=== PATIENT | male | born 1950 | race Caucasian/White ===

== ENCOUNTER 2025-04-23 14:58 | Outpatient (AMB) | payer OTHER, SELFPAY ==
--- OUTSIDE RECORDS SUMMARY | 2023-10-27 06:10 | XMS_ITS ---
Author Organization [facility] Address [address] [address] Care Team Providers Care Drywaller Name Role Phone Jose Ibrahim Unavailable [phone] REASON FOR VISIT REF FROM DR OTERO, FOR TESSA Vital Signs Temperature 97.7 degrees Fahrenheit 10/27/19 24 Blood pressure systolic 140 mm Hg 10/27/19 24 Blood pressure diastolic 75 mm Hg 024 Heart Rate 100 /min 10/27/2023 Respiratory Rate 20 /min 10/27/2023 Height 65 in 10/27/2023 Weight 146 lbs 10/27/2023 BMI 24.29 kg/m2 10/27/2023 Oximetry 98 % 10/27/2023 Height-cm 165.10 cm 10/27/2023 Weight-kg 66.22 kg 10/27/2023 Encounters Encounter Location Date Provider Diagnosis [facility] [address] [address] 10/27/2023 Jose Ibrahim Plan Of Treatment No Information Progress Notes * MARYFIORELLA STEIN SDOB:[birth year] (74 yo M)Acc No.[id number]:10/27/2023 Progress Notes Patient: FIORELLA FARFAN Provider: Mariaelena Ibrahim MD :1950 A ge:72 Y S ex:Male Date:10/27/2023 Phone: Address:[address] [place] [address] [id number] Subjective: * Chief Complaints: * R EF FROM DR OTERO FOR TESSA Objective: * Vitals: B P: 140/75 mm Hg, HR: 100 /min, RR: 20 /min, Temp: 97.7 F, Oxygen sat %: 98 %, Wt: 146 lbs, Wt-k.22 kg, Ht: 65 in, Ht-cm: 165.10 cm, BMI: 24.29 Index. * Electronic signature of Jose Ibrahim MD on 04/23/2025 at 06:26 PM EDT Sign off status: Pending * Provider: Mariaelena Ibrahim MD Date: 0 10/27/2023 Generated for Hector venegas/Arcelia/Simaitting on: 0 04/23/2025 06:26 PM EDT
--- OUTSIDE RECORDS SUMMARY | 2023-10-30 05:00 | XMS_ITS ---
Author Organization [facility] Address [address] [facility] [address] [place] [address] Care Team Providers Care Sales Route Driver Name Role Phone Migration, Provider Unavailable Unavailable REASON FOR VISIT EMR-Agapito Encounters Encounter Location Date Provider Diagnosis [facility] [address] [address] 10/30/2023 Provider Migration Obstructive sleep apnea (adult) (pediatric) G47.33 Assessments Encounter Date Diagnosis (ICD Code) Assessment Notes Treatment Notes Treatment Clinical Notes Section Notes 10/30/2023 Obstructive sleep apnea (adult) (pediatric) (ICD-10 - G47.33) Plan Of Treatment No Information Progress Notes * CHAUFIORELLA SDOB:[birth year] (74 yo M)Acc No.[id number]:10/30/2023 Patient: FIORELLA FARFAN Provider: Servando Morris :1950 A ge:72 Y S ex:Male Date:10/30/2023 Phone: Address:[address] [place], [place] [phone] Subjective: * Chief Complaints: * E MR-Agapito Assessment: * Assessment: 1. O bstructive sleep apnea (adult) (pediatric) - G47.33 Billing Information: * Visit Code: 45838 Office Visit, New Pt., Level 4. * Electronic signature of Prov ider Migration on 04/23/2025 at 06:26 PM EDT Sign off status: Pending * Provider: Servando weeks Migration Date: 10/30/2023 Generated for Hector venegas/Arcelia/eTconniesmitting on: 0 04/23/2025 06:26 PM EDT
--- OUTSIDE RECORDS SUMMARY | 2024-07-12 12:34 | XMS_ITS ---
Author Organization Chace Otero MD Address [address] [place] [address] Care Team Providers Care Director Safety Council Name Role Phone CHACE OTERO Primary Care Provider Encounters Encounter Location Date Provider Diagnosis [facility] Oter[facility] [address] [place], [place] [phone] 07/12/2024 CHACE OTERO PLAN OF TREATMENT No Information
--- OUTSIDE RECORDS SUMMARY | 2024-08-30 05:00 | XMS_ITS ---
Author Organization [facility] Address [address] [facility] [address] [place] [address] Care Team Providers Care Radiotelegraph Operator Servicer Name Role Phone Migration, Provider Unavailable Unavailable REASON FOR VISIT EMR-Agapito Encounters Encounter Location Date Provider Diagnosis [facility] [address] [facility] [address] [place] [address] 08/30/2024 Provider Migration Plan Of Treatment No Information Progress Notes * FIORELLA RITCHIE SDOB:[birth year] (74 yo M)Acc No.[id number]:08/30/2024 Patient: Ash ANTONUlisesFIORELLA :1950 A ge:73 Y S ex:Male Phone: Address:[address] [place] [address], [address] Subjective: * Chief Complaints: * E MR-Agapito * * Date:
--- OUTSIDE RECORDS SUMMARY | 2024-08-31 05:00 | XMS_ITS ---
Author Organization [facility] Address [address] [facility] [address] [place] [address] Care Team Providers Care Precision Lens Generator Name Role Phone Migration, Provider Unavailable Unavailable REASON FOR VISIT EMR-Agapito Encounters Encounter Location Date Provider Diagnosis [facility] [address] [facility] [address] [place] [address] 08/31/2024 Provider Migration Plan Of Treatment No Information Progress Notes * FIORELLA RITCHIE SDOB:[birth year] (74 yo M)Acc No.[id number]:08/31/2024 Patient: Ash ANTONUlisesFIORELLA :1950 A ge:73 Y S ex:Male Phone: Address:[address] [place] [address], [address] Subjective: * Chief Complaints: * E MR-Agapito * * Date:
--- OUTSIDE RECORDS SUMMARY | 2024-09-11 09:45 | XMS_ITS ---
Author Organization Chace Otero MD Address [address] [place] [address] Care Team Providers Care Clerical Secretary Name Role Phone CHAEC OTERO Primary Care Provider ALLERGIES No Known [...] bilateral (H25.13) Active confirmed Nuclear senile cataract ([id number]) VITAL SIGNS Heart Rate 83 /min 09/11/2024 Blood pressure systolic 115 mm Hg 09/11/19 25 Blood pressure diastolic 60 mm Hg 025 Weight 152 lbs 09/11/2024 BMI 25.29 kg/m2 09/11/2024 Height 65 in 09/11/2024 Oximetry 95 % 09/11/2024 Encounters Encounter Location Date Provider Diagnosis Chace Otero MD [facility] [address] [place], [place] [id number] 09/11/2024 CHACE OTERO Hyperlipidemia, unspecified E78.5 ; [...] (ICD-10 - H25.13) REFER TO OPTHALMOLOGIST --AT [facility] PLAN OF TREATMENT Treatment Notes Assessment Notes Hyperlipidemia, unspecified Nutrition: l ow cholesterol/TG diet Parkinson's disease with dys kinesia, with fluctuations Continue current therapy Dementia in other diseases c lassified elsewhere, moderate, without behavioral disturbance, psychotic disturbance, mood disturbance, and anxiety Continue current therapy Gastro-esophageal reflux dis ease without esophagitis Continue current therapy Age-related nuclear cataract, bilateral REFER TO OPTHALMOLOGIST--AT [facility], Future Test Test Name Order Date LIPID PANEL 09/11/2024 COMPREHENSIVE METABOLIC PANEL 09/11/2024 Next Appt Details Follow Up: 2 Months, Reason: Progress Notes * Examination Category Sub-Category Detail Notes Category Not es General Examination GENERAL APPEARANCE: in no ac joshua distress, well developed, well nourished HEART: no murmurs, regular rate and rhythm, S1, S2 normal LUNGS: clear to auscultatio n bilaterally ABDOMEN: normal, bowel sounds present, soft, nontender, nondistended NEUROLOGIC: alert and oriented unsteady gait EXTREMITIES: no clubbing, cyanosi s, or edema PERIPHERAL PULSES: 2+ dorsalis pedis
--- OUTSIDE RECORDS SUMMARY | 2024-09-11 10:00 | XMS_ITS ---
Author Organization Chace Otero MD Address [address] [place] [address] Care Team Providers Care Prep Room Supervisor Name Role Phone CHACE OTERO Primary Care [...] Five times a day Active VITAL SIGNS Heart Rate 83 /min 09/11/2024 Blood pressure systolic 115 mm Hg 09/11/19 25 Blood pressure diastolic 60 mm Hg 025 Weight 152 lbs 09/11/2024 BMI 25.29 kg/m2 09/11/2024 Height 65 in 09/11/2024 Oximetry 95 % 09/11/2024 Encounters Encounter Location Date Provider Diagnosis Chace Otero MD [facility] [address] [place], [place] [phone] 09/11/2024 CHACE OTERO Encounter for genera l [...] Patient Care Team Health Risk Assessment In [facility], would you say your health is: [...]
--- OUTSIDE RECORDS SUMMARY | 2024-11-04 10:30 | XMS_ITS ---
Author Organization Chace Reed MD Address [address] [place] [address] Care Team Providers Care Slope Tender Name Role Phone CHACE REED Primary Care Provider ALLERGIES No Known Allergies REASON FOR VISIT PATIENT HERE TODAY FOR 2 MONTH F/U, LAB REVIEW, RESULTS IN CHART, FYI-THIS IS HIS LAST VISIT HERE HE IS MOVING TO [place] IN ABOUT 2 WEEKS, PATIENT STATES PAIN [...] enjoys photography a nd reading VITAL SIGNS Heart Rate 78 /min 11/04/2024 Blood pressure systolic 130 mm Hg 11/05/19 Blood pressure diastolic 80 mm Hg 025 Weight 158 lbs 11/04/2024 BMI 26.29 kg/m2 11/04/2024 Height 65 in 11/04/2024 Oximetry 97 % 11/04/2024 Encounters Encounter Location Date Provider Diagnosis Chace Reed MD [facility] [address] [place], [place] [phone] 11/04/2024 CHACE REED Hyperlipidemia, unspecified E78.5 ; Unsteadiness on feet [...] Next Appt Details Follow Up: LEAVING TO [facility], Reason: Progress Notes * Examination Category Sub-Category Detail Notes Category Not es General Examination GENERAL APPEARANCE: in no ac [place] distress, well developed, well nourished NECK/THYROID: neck supple, full ra nge of motion, no cervical lymphadenopathy HEART: no murmurs, regular rate and rhythm, S1, S2 normal LUNGS: clear to auscultatio n bilaterally ABDOMEN: normal, bowel sounds present, soft, nontender, nondistended NEUROLOGIC: alert and oriented, gait unsteady EXTREMITIES: no clubbing, cyanosi s, or edema
--- OUTSIDE RECORDS SUMMARY | 2024-11-26 09:02 | XMS_ITS | Continuity of Care Document ---
Author Organization [facility] Address [address] [facility] [address] [place] [address] Care Team Providers Care Referral Rn Name Role Phone Ben Franklin ODMoshe Unavailable Unavailable Allergies, Adverse Reactions, Alerts Substance Reaction Status Criticality No Known Allergies Active No Inform ation Medications Medication Instructions Dosage Effective Dates (start - stop) Status Comments gatifloxacin 0.5 % eye drops instill 1 drop 2 times every day into operative eye for 7 days post operative - Active ONLY Acceptable substitutions include Zymaxid, Moxeza, Besivance, Moxifloxacin and Vigamox with same instructions. prednisolone acetate 1 % eye drops,suspension instill 1 drop 2 times every day into operative eye for 4 weeks (Pharmacist see Rx comment box for acceptable substitutions) - Active ONLY Acceptable substitutions include Durezol and Pred Forte with same instructions.Patie nt having procedure OU adjust amount as needed Nevanac 0.1 % eye drops,suspension instill 1 drop into operative eye twice daily for 4 weeks(pharmacist see Rx comment box for ONLY substitutions) - Active ONLY Acceptable substitutions are Ilevro, Prolensa, Acular LS 0.4%, Ketorolac 0.4%, Bromsite 0.075% JOSE ANGEL with same instruction. Patient will be having surgery OU. Please dispense 6 mL Rytary 48.75 mg-195 mg capsule,extended release take 1 capsule by oral route 3 times every day 1.00 capsule - Active Vitamin D3 125 mcg (5,000 unit) tablet - Active donepezil 5 mg tablet take 1 tablet by oral route every day in the evening 5 MG - Active sertraline 50 mg tablet take 1 tablet by oral route every day 50 MG - Active Primatene 12.5 mg tablet - Active Procedures Procedure Date Postop F/u Visit [employer] REFRACTION Visual Test Same Day PostOp Visit CATARACT SURG W/IOL, 1 STAGE CATARACT SURG W/IOL, 1 STAGE IOL Master Anes- Eye; Lens Surg Postop F/u Visit [employer] 5 No Charge REFRACTION Surgery Pre-Payment Same Day PostOp Visit CATARACT SURG W/IOL, 1 STAGE Anes- Eye; Lens Surg CATARACT SURG W/IOL, 1 STAGE Surgery Pre-Payment H&P for surgery Offic/outpt E&m New Mod-hi 45 5 No Charge REFRACTION ARGOS No charge Macula OCT Advance Directives Directive Yes / No Effective Date File Name No Information Encounters Encounter Description Practice Location Reason(s) For Visit Diagnoses Date Provider Providers Copied on Encounter [facility], [address] [place] [address], [id number], [facility] [place] No Information 5 Ben Franklin OD Moshe. [address] [facility] [address], [place], [place], [id number] , [place]. tel:[phone] [facility], [address] [place] [address] [address], [id number] [place] [facility] post op (chief complaint) Presence of intraocular lensPresbyopiaVit reous degeneration, bilateral Nov- 5 Ben Franklin OD Moshe. [address] [facility] [address], [place], [place], [id number] , [place]. tel:[phone] Referring Provider: Christofer Ospina OD R, [address] [place], [address]. tel:[phone] [facility], [address] [place] [address] [address], [place], [address] [place] [address], [facility], [place] Presence of intraocular lens Oct- 5 McDonel OD Rolando. [address] [facility], [place], [address] [place] [address] , . tel:[phone] [facility], [address] [place] [address] 230, [place], [address] [place] [address], tel:[phone] [facility] Age-related nuclear cataract, left eye 5 [facility] [place] [facility]. [address] [facility], [facility] 230, [place], [address] [place] [address] , . tel:[phone] Referring Provider: Poonam Lyles, [address] [place] [address] [address], [place], [address] . tel:[phone] [facility], [address] [place] [address] [address], [place], [address] [place] [address], [facility] Age-related nuclear cataract, left eye 5 Loida Levin. [address] [place] [address] [address], [place], [address] [place] [address] , . tel:[phone] Referring Provider: Poonam Lyles, [address] [place] [address] [address], [place], [address] . tel:[phone] [facility], [address] [place] [address] 230, [place], [address] [place] [address], [facility], [place] glare (chief complaint) post op (chief complaint) Age-related nuclear cataract of left eyeDry eye syndrome of bilateral lacrimal glandsPresence of intraocular lensPresbyopia 5 McDonel OD Rolando. [facility], [place], [place], [address] [place] [address] , . tel:[phone] Referring Provider: Christofer Ospina OD R, [address] [place], [address]. tel:[phone] [facility], [address], [place], [address] [place] [address], tel:[phone] [facility] No Information Oct- 5 [facility]. [address], [place], [address] [place] [address] , . tel:[phone] Referring Provider: Christofer Norton, [address] [place], [address]. tel:[phone] [facility], [address], [place], [address] [place] [address], [facility], [place] Presence of intraocular lens 5 Tyrell Marshall. [address], [place], [place], [id number] , . tel:[phone] [facility], [address] [facility] [facility] [address], [place], [address] [place] [address], [facility] Age-related nuclear cataract, right eye Oct- 5 Loida Levin. [address], [place], [address] [place] [address] , . tel:[phone] Referring Provider: Poonam Lyles, [address], [place], [address] . tel:[phone] [facility] [place] [facility], [address], [place], [address] [place] [address], tel:[phone] [facility] Age-related nuclear cataract, right eye 5 [facility]. [address], [place], [address] [place] [address] , . tel:[phone] Referring Provider: Poonam Lyles, [address], [place], [address] . tel:[phone] [facility], [address] [address], [place], [address] [place] [place] [address] tel:[phone] [facility] No Information Oct-1 0- 5 [facility]. [address] [place] [address], [address], [address] [place] [address]. tel:[phone] Referring Provider: Christofer Norton, [address] [place] [address], [address]. tel:[phone] [facility], [address] [place] [address], [place], [address] [place] [address] [facility] [place], [place] Encounter for other preprocedural examination Oct-0 5 White Teresa. [address] [place] [address], [address] [place] [address]. tel:[phone] Referring Provider: Christofer Norton, [address] [place] [address], [address]. tel:[phone] Offic/outpt E&m New Mod-hi 45 [facility], [address] [place] [address], [place], [address] [place] [address] glare (chief complaint) Age-related nuclear cataract, bilateralPresbyop iaDry eye syndrome of bilateral lacrimal glands Oct-0 - 5 Loida Levin. [address] [place] [address], [address] [place] [address]. tel:[phone] Referring Provider: Poonam Lyles, [address] [place] [address] [address], [place], [address] . tel:[phone] Family History Family Member Type Diagnosis Age At Onset Problem No family history of Macular degeneration Problem No family history of [place] a Payers Payer name Insurance type Covered constitution party [facility] [id number] Social History Type Description Quantity Date Captured Comments Sex Male Smoking Status No Information Chief Complaint And Reason For Visit No Information Reason For Referral Reason For Referral No Information History Of Present Illness Encounter Date Complaint History Of Prese nt Illness post op The 73 year old male presents for evaluation of post op following cataract surgery in both eyes. Patient states good compliance with post op drops and only has this evening left for the left eye. post op Patient presents for post op evaluation following surgery in the right eye. Patient denies discomfort and reports compliance with post op drops. glare Patient presents for evaluation of glare in the left eye worsening over the last 2-3 years. Patient reports difficulty reading captions on the television due to glare from the sunlight coming in through the window. glare Patient presents for evaluation of glare in both eyes over the last few years. Patient states he notices more trouble reading captions due to glare from lights or bright sunlight causing poor vision. Functional Status Date Functional Assessmen t No Information Instructions Date Instruction Additional Infor lavinia return in 1 year DFE Related to Vitreous degeneration, bilateral Impression/Plan Related to Presb yopia Impression/Plan Related to Prese nce of intraocular lens Impression/Plan Related to Vitre ous degeneration, bilateral cataract surgery Related to Age- related nuclear cataract of left eye Impression/Plan Related to Age-r elated nuclear cataract of left eye Impression/Plan Related to Prese nce of intraocular lens Impression/Plan Related to Dry e ye syndrome of bilateral lacrimal glands Impression/Plan Related to Presb yopia Impression/Plan Related to Age-r elated nuclear cataract, bilateral Impression/Plan Related to Dry e ye syndrome of bilateral lacrimal glands Impression/Plan Related to Presb yopia Assessments Type Assessment Date No Information Patient Care Teams Name Effective Dates (start - stop) Status Members No Information
--- OUTSIDE RECORDS SUMMARY | 2024-12-24 07:00 | XMS_ITS ---
Author Organization Chace Otero MD Address [address] [place] [address] Care Team Providers Care Studio Camera Operator Name Role Phone CHACE OTERO Primary Care Provider ALLERGIES No Known Allergies REASON FOR VISIT PATIENT HERE TODAY FOR YEARLY [facility] ANNUAL WELLNESS VISIT- ADIS, PATIENT [...] Chace Otero MD [place] [address] [place] [id number] 12/24/2024 CHACE OTERO PLAN OF TREATMENT No [...]
--- NOTE | 2025-04-23 15:31 | MHC.PC.OV ---
Vital Signs 04/23/25 15:48 Height 5 ft 7 in Weight 150 lb 6 oz BMI 23.5 BP 104/70 Blood Pressure Location Rt brachial Position Sitting Respiration 14 Pulse 79 Pulse Source Pulse Oximeter Temp 98.3 F Temp Source Temporal Artery Scan Pulse Oximetry (%) 96 Oxygen Delivery Method Room Air Intake Visit Reasons: RACING SECRETARY EST CARE Intake Note: Sundar presents in the office today to establish care. Allergies Seasonal Allergies Allergy (Verified 04/23/25 15:35) Runny Nose Medication List - Last Reconciled 04/24/25 by MARCIAL Schneider albuterol sulfate 90 mcg/actuation 2 inhalations inhalation .every 4 hours PRN 30 days carbidopa-levodopa 52.5-210 mg ER (Crexont) 4 caps PO BID inhalational spacing device (BreatheRite MDI Spacer) As directed levodopa (Inbrija) 84 mg inhalation BID PRN sertraline 50 mg PO DAILY Tobacco use date assessed: 04/23/25 Fall risk assessment: 1 Fall in past year Last assessed Fall Risk: 04/23/25 Dental Screening Dental Screen Date: 04/23/25 Did you have a dental visit in the last 12 months?: No Did you have a dental problem in the last 6 months where you did not have access to dental care?: No Was dental information given to patient?: Yes HPI HPI Comments History of Present Illness Details This is a 74-year-old male with a past medical history of asthma, Parkinson's disease and hyperlipidemia presenting to establish care. His medical records are unavailable at the time of the visit. He was diagnosed with Parkinson's disease in 2002. His neurologist is Dr. Patel at [facility]. He is currently treated with carbidopa levodopa, Inbrija, sertraline, and he has a DBS. notes worsening cognitive decline over the past year. He has an appointment in May with Neurology. They have an appointment with physical therapy at [facility] in May. They need a referral for speech and OT sent there. He recently received the [employer] kit with a which they plan to complete. His only concern today is intermittent left-sided chest pain. He says this has been going on for a long time. He had a chemical stress test done within the past year, and he reports no intervention was recommended. He does not recall having an echo. Patient says the pain is sharp. He feels it when he stands up and starts walking, but if he keeps walking it goes away. He denies shortness of breath, diaphoresis, dizziness, syncope. His father had coronary artery disease. The patient does not smoke. ROS: Constitutional: +chronic fatigue. Denies fevers, chills, night sweats or unexplained weight loss Eyes: No vision changes Respiratory: No shortness of breath, cough or sputum production. Cardiovascular: Denies palpitations and pedal edema. See HPI Gastrointestinal: No anorexia, nausea, vomiting or diarrhea. No abdominal pain or blood in stool Neurologic: Denies syncope, seizures. see HPI Musculoskeletal: Chronic neck pain Physical exam: Constitutional: Alert, in no distress. Eyes: Pupils are equal, round and reactive to light. Extraocular muscles intact. Neck: Supple, Full range of motion. No lymphadenopathy. Respiratory: Clear to auscultation. Cardiovascular: S1 S2 regular. No murmurs Genitourinary: No costovertebral angle tenderness. Neurologic: Hypokinetic dysarthria. Extremities: Warm and well perfused. No clubbing, cyanosis or edema. Intact peripheral pulses bilaterally. Psychiatric: Normal mood and affect [facility] Medical History (Updated 04/24/25 @ 09:29 by MARCIAL Schneider) Hypokinetic Parkinsonian dysphonia Pure hypercholesterolemia Pseudobulbar affect Chest pain Imbalance Incontinence Shingles Parkinson disease Asthma Surgical History (Updated 04/23/25 @ 15:56 by Jayne Sanchez MA) S/P deep brain stimulator placement History of cataract surgery History of cholecystectomy Family History (Updated 04/23/25 @ 15:48 by Jayne Sanchez MA) Father Asthma Hypertension Hyperlipemia Cardiovascular disease Brother Asthma Hypertension Hyperlipemia Diabetes Cardiovascular disease Clotting disorder Prostate cancer Substance abuse Sister Asthma Genetic thyroid disorder Mother Hypertension Diabetes Genetic thyroid disorder FHx: mental illness Schizophrenia Maternal Grandmother Hypertension Hyperlipemia Cardiovascular disease Maternal Grandfather Hypertension Hyperlipemia Cardiovascular disease Social History (Updated 04/23/25 @ 15:48 by Jayne Sanchez MA) Housing: House Alcohol intake: current Patient Tobacco Use Status: Never used Tobacco e-Cigarette/Vaping Use: Never Used Second Hand Smoke Exposure: No service: No Current occupational status: retired Current occupational exposures/hazards: No Cognitive needs: No Hearing needs: No Vision needs: No Questionnaire PHQ-9 Over the last 2 weeks, how often have you been bothered by any of the following problems? 1. Little interest or pleasure in doing things: not at all 2. Feeling down, depressed, or hopeless: not at all 3. Trouble falling or staying asleep, or sleeping too much: nearly every day 4. Feeling tired or having little energy: not at all 5. Poor appetite or overeating: not at all 6. Feeling bad about yourself - or that you are a failure or have let yourself or your family down: not at all 7. Trouble concentrating on things, such as reading the newspaper or watching television: not at all 8. Moving or speaking so slowly that other people could have noticed. Or the opposite - being so fidgety or restless that you have been moving around a lot more than usual: nearly every day 9. Thoughts that you would be better off or of hurting yourself in some way: not at all Total score: 6 Depression Screening Interpretation: Positive Depression Screening Done: Yes 43705 - PHQ-9 Billing: Yes Source: Developed by Drs. Moris Montero, Giulia Ohara, Kam Benitez and colleagues, with an educational derek from [employer]. Thrive Questionnaire Date Thrive assessed: 04/23/25 I am a: Patient What is your living situation today?: I have a steady place to live Within the past 12 months, did the food you bought not last and you didn't have the money to get more?: Sometimes True Within the past 12 months, did you worry whether your food would run out before you got money to buy more?: Never true Do you have trouble paying for medicines?: Yes Do you have trouble getting transportation to medical appointments?: No Do you have trouble paying your heating and electricity bill?: No Do you have trouble taking care of your child, family member or friend?: No Do you have trouble with day-to-day activities such as bathing, preparing meals, shopping, managing finances, etc.?: No Are you currently unemployed and looking for a job?: No Are you interested in more education?: Yes Please select the resources that you would like help with: Paying for medicine, Transportation, Utilities and None Currently or been in a relationship where the following occur: No concerns reported THRIVE Score: 1 AUDIT C Alcohol Use Questionnaire (AUDIT-C) 1. How often do you have a drink containing alcohol?: Never 3. How often do you have six or more drinks on one occasion?: Never Total Score: 0 DEVIKA-7 AMB Questionnaire DEVIKA-7 Date DEVIKA - 7 assessed: 04/23/25 Feeling nervous, anxious, or on edge: 0 = Not at all Not being able to stop or control worryin = Not at all Worrying too much about different things: 0 = Not at all Trouble relaxin = Not at all Being so restless that it is hard to sit still: 0 = Not at all Becoming easily annoyed or irritable: 0 = Not at all Feeling afraid as if something awful might happen: 0 = Not at all Total DEVIKA-7 score (0-4 normal; 5-9 mild; 10-14 moderate; 15-21 severe): 0 Source: Developed by Drs. Moris Montero, Giulia Ohara, Kam Benitez and colleagues, with an educational derek from [employer]. DEVIKA-7 Assessment Billing DEVIKA-7 Assessment Tool: DEVIKA-7 Assessment 25629 Physical exam (Primary Care) Vital Signs: Last Vital Signs Temp 98.3 F 04/23/25 15:48 Pulse 79 04/23/25 15:48 Resp 14 04/23/25 15:48 BP 104/70 04/23/25 15:48 Pulse Ox 96 04/23/25 15:48 Oxygen Delivery Method Room Air 04/23/25 15:48 BMI result Body Mass Index 23.5 Tobacco/Smoking Status: Tobacco use Status Tobacco use date assessed 04/23/25 04/23/25 15:56 Patient Tobacco Use Status Never used Tobacco 04/23/25 15:56 e-Cigarette/Vaping Use Never Used 04/23/25 15:56 PHQ-9: PHQ-9 Score PHQ-9: Total score 6 04/23/25 17:41 Depression Screening Interpretation: Positive Thrive Assessment: Date of Thrive Assessment Date Thrive assessed 04/23/25 04/23/25 15:34 Currently or been in a relationship where the following occur: No concerns reported Office Procedures EKG Details: Normal sinus rhythm, inferior infarct age undetermined, 77 beats per minute, reviewed by [id number], Complete Coding Level of Care Code New Pt Level 4 (76263) Complex EM visit Add On G2211 Diagnoses Mild intermittent asthma without complication J45.20 Asthma severity: mild Asthma persistence: intermittent Asthma complication type: uncomplicated Parkinson disease G20.A1 Dyskinesia presence: with dyskinesia Chest pain, unspecified type R07.9 Chest pain type: unspecified Pure hypercholesterolemia E78.00 Hypokinetic Parkinsonian dysphonia G20.A1; 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 (2) Parkinson disease: Code(s): G20.A1 - Parkinson's disease without dyskinesia, without mention of fluctuations Category: Medical Qualifiers: Dyskinesia presence: with dyskinesia Plan: Continue management per [facility] Neurology. Referred for speech and OT. (3) Chest pain: Code(s): R07.9 - Chest pain, unspecified Category: Medical Qualifiers: Chest pain type: unspecified Qualified Code(s): R07.9 - Chest pain, unspecified Plan: EKG with no acute ischemic changes today. Reports having chemical stress test within the past year. He is signing a release for records. I have ordered an echocardiogram. Does not sound cardiac since he states pain goes away after he continues to walk and move. (4) Pure hypercholesterolemia: Code(s): E78.00 - Pure hypercholesterolemia, unspecified Category: Medical Plan: Check fasting lipid profile. He is not on medication for this. Evaluate need for statin based on lab results. Recommended Mediterranean diet. (5) Hypokinetic Parkinsonian dysphonia: Code(s): G20.A1 - Parkinson's disease without dyskinesia, without mention of fluctuations; R49.0 - Dysphonia Category: Medical Plan Follow up in 3 months. Orders: Orders TSH reflex Free T4 04/23/25 E78.5 - Hyperlipidemia, unspecified, G20.A1 - Parkinson's disease without dyskinesia, without mention of fluctuations, J45.909 - Unspecified asthma, uncomplicated Vitamin B12 04/23/25 E78.5 - Hyperlipidemia, unspecified, G20.A1 - Parkinson's disease without dyskinesia, without mention of fluctuations, J45.909 - Unspecified asthma, uncomplicated, Z91.89 - Other specified personal risk factors, not elsewhere classified Lipid Panel 04/23/25 E78.5 - Hyperlipidemia, unspecified, G20.A1 - Parkinson's disease without dyskinesia, without mention of fluctuations, J45.909 - Unspecified asthma, uncomplicated Prostate Specific Antigen 04/23/25 Z12.5 - Encounter for screening for malignant neoplasm of prostate OT Evaluation and Treatment Today G20.A1 - Parkinson's disease without dyskinesia, without mention of fluctuations Complete Blood Count no Diff 04/23/25 E78.5 - Hyperlipidemia, unspecified, G20.A1 - Parkinson's disease without dyskinesia, without mention of fluctuations, J45.909 - Unspecified asthma, uncomplicated Comprehensive Met. Panel 04/23/25 E78.5 - Hyperlipidemia, unspecified, G20.A1 - Parkinson's disease without dyskinesia, without mention of fluctuations, J45.909 - Unspecified asthma, uncomplicated AMB EKG-In Office 04/23/25 R07.9 - Chest pain, unspecified CA echo transthoracic complete Today R07.9 - Chest pain, unspecified Referrals Speech and Hearing Referral G20.A1 - Parkinson's disease without dyskinesia, without mention of fluctuations, R49.0 - Dysphonia Medications: New inhalational spacing device (BreatheRite MDI Spacer) As directed 1 ea 0RF albuterol sulfate 90 mcg/actuation 2 inhalations inhalation .every 4 hours PRN 8.5 grams 0RF shortness of breath or wheezing 30 days
[2025-04-23 15:48] VITALS: BP 104/70; PULSE 79; RESP 14; TEMP 36.8; O2SAT 96; BMI 23.5
--- OUTSIDE RECORDS SUMMARY | 2025-04-23 18:26 | XMS_ITS | Encounter Summary ---
Author Organization [facility] Address [address] [place] [address] Care Team Providers Care Printing Press Machinist Name Role Phone AutumnMilly bennett Primary Care Provider Unavailabl e Encounter Details Date Type Department Care Team (Late Contact Info) Description 02/24/2025 myChart Message [facility] Speech Therapy Department [address] [place] [address] Carlos, Generic Provider [address] [place] [id number] Modified Barrium Swallow Study Social History Tobacco Use Types Packs/Day Years Used Date Smoking Tobacco: Never Smokeless Tobacco: Never Comments:: Alcohol Use Standard Drinks/Week Comments Yes 0 (1 standard drink = 0.6 oz pur e alcohol) occasional and rare Sex and Gender Information Value Date Recorded Sex Assigned at Male 12/12/2024 11:00 AM EDT Legal Sex Male 8:13 AM EDT Gender Identity Male 12/12/2024 11:00 AM EDT Sexual Orientation Straight 02/19/2025 9: 31 AM EDT documented as of this encounter Plan of Treatment Upcoming Encounters Date Type Department Care Team (Late Contact Info) Description 05/22/2025 10:00 AM EDT Office Visit [facility] [address] [place] [address] Shobha Ivey NP [address] [place] [address] 06/04/2025 9:00 AM EDT Appointment [facility] Xray [address] [place] [address] Mu Macdonald MD [address] [place] [address] 10/22/2025 2:00 PM EDT Procedure visit [facility] [address] [place] [address] Mu Macdonald MD [address] [place] [address] Scheduled Procedures Name Priority Associated Diagnoses Date/Ti me REPLACEMENT OF CRANIAL 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
--- OUTSIDE RECORDS SUMMARY | 2025-04-23 18:26 | XMS_ITS | Patient Health Record ---
Author Organization [facility] Address [address] [place] [address] Care Team Providers Care Garment Sewing Machine Operator Name Role Phone Migration, Provider Unavailable Unavailable Reason For Referral No Information Problems Problem Type SNOMED Code ICD Code Onset Dates Problem Status W/U Status Risk Notes Problem Obstructive sleep apnea syndrome (disorder) ([id number]) Obstructive sleep apnea (adult) (pediatric) (G47.33) Active confirmed Encounters Encounter Location Date Provider Diagnosis [facility] [address] [id number] 08/30/2024 Provider Migration [facility] [address] [address] 08/31/2024 Provider Migration Plan Of Treatment No Information Insurance Providers Payer Name Payer Address Payer Phone Subscriber Number Group Number Insured Name Patient Relationship to Insured Coverage Start Date Coverage End Date [facility] [address] [place] [address] [id number] FIORELLA RITCHIE Self - patient is the insured 4 3
--- OUTSIDE RECORDS SUMMARY | 2025-04-23 18:26 | XMS_ITS | Encounter Summary ---
Author Organization [facility] Address [address] [place] [address] Care Team Providers Care Speech And Language Specialist Name Role Phone Milly Leyva Primary Care Provider Unavailabl e Encounter Details Date Type Department Care Team (Late Contact Info) Description 04/09/2025 Telephone [facility] [address] [place] [address] Melodie Baugh, RN Social History Tobacco Use Types Packs/Day Years [...] 05/22/2025 10:00 AM EDT Office Visit [facility] [address] [place] [address] Shobha Ivey NP [address] [place] [address] 06/04/2025 9:00 AM EDT Appointment [facility] Xray [address] [place] [address] Mu Macdonald MD [address] [place] [address] 10/22/2025 2:00 PM EDT Procedure visit [facility] [address] [place] [address] Mu Macdonald MD [address] [place] [address] Scheduled Procedures Name Priority Associated Diagnoses Date/Ti me 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
--- OUTSIDE RECORDS SUMMARY | 2025-04-23 18:26 | XMS_ITS | Encounter Summary ---
Author Organization [facility] Address [address] [place] [address] Care Team Providers Care Food Service Worker [facility] Name Role Phone Milly Leyva Primary Care Provider Unavailabl e Encounter Details Date Type Department Care Team (Late Contact Info) Description 04/10/2025 Telephone [facility] [address] [place] [address] Melodie Baugh, RN Social History Tobacco Use [...] Description 05/22/2025 10:00 AM EDT Office Visit [facility] [address] [place] [address] Shobha Ivey NP [address] [place] [address] 06/04/2025 9:[address] EDT [address]oint[address] [facility] Xray [address] [place] [address] Mu Macdonald MD [address] [place] [address] 10/22/2025 2:00 PM EDT Procedure visit [facility] [address] [place] [id number] Mu Macdonald MD [address] [place] [address] Scheduled Procedures Name Priority Associated Diagnoses Date/Ti me 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
--- OUTSIDE RECORDS SUMMARY | 2025-04-23 18:27 | XMS_ITS | Clinical Summary ---
Author Organization [facility] Address [address] [place] [address] Care Team Providers Care Purchasing Clerk Name Role Phone Milly Leyva Primary Care Provider Unavailabl e Allergies No known active allergies Medications ASPIRIN ORAL 81 mg Q AM, Activ e Inbrija 42 mg Inhale 84 mg via handihaler 2 (two) times a day. 4 Active sertraline (ZOLOFT) 100 mg tablet Take 0.5 tablets (50 mg total) by mouth once a day. 45 tablet 3 5 02/18/20 26 Active carbidopa-levod opa (Crexont) 52.5-210 mg capsule,IR -extend rel,biphase Take 2 capsules by mouth in the morning, 1 capsule in the early afternoon and 1 capsule in the evening. 120 each 5 04/01/2025 5:56 PM EDT 5 05/26/20 25 Active Active Problems Problem Noted Date Diagnosed Date Dysarthria 02/17/2025 Dysphagia, oropharyngeal phase 02/17/2025 Weight loss, unintentional 06/16/2014 Parkinsonism 11/23/2011 Encounters Date Type Department Care Team Description 04/10/2025 Telephone [facility] [address] [place] [address] Melodie Baugh, RN 04/09/2025 Telephone [facility] [address] [place] [address] Melodie Baugh, RN 03/17/2025 Telephone [facility] [address] [place] [address] Melodie Baugh RN 02/24/2025 Documentation [facility] [address] [address] Jevon Lopez CPhT Prior Authorization ([place] Approved for Crexont 52.5-210mg capsule, #180/30, through [employer] [PA# [id number]]. Effective 02/23/25 - 08/12/25. May fill with [facility], Copay $0/) 02/24/2025 myChart Message [facility] Speech Therapy Department [address] [phone] Mychart, Generic Provider Modified Barrium Swallow Study 02/23/2025 11:15 AM EDT Office Visit [facility] [address] [place] [address] Franklyn Schulz MD PhD End of battery life of deep brain stimulator (Primary Dx) 02/20/2025 Telephone [facility] [address] [place] [address] Breaker Operator: Enrike Steiner Prior Authorization (MARCIAL ENGLISH ([place])) 02/17/2025 9:30 AM EDT Procedure visit [facility] [address] [place] [phone] Mu Macdonald MD Parkinson's disease with dyskinesia and fluctuating manifestations (HCC) (Primary Dx); Dysarthria; Dysphagia, oropharyngeal phase from Last 3 Months Family History Medical History Relation Name Comments Pneumonia Brother 1 Diabetes Brother 2 Neuropathy Brother 2 Heart disease Father Neuropathy Father Diabetes Mother Hypothyroidism Mother Schizophrenia Mother Hypothyroidism Sister Relation Name Status Comments Brother 1 Brother 2 Alive Father Mother Sister Alive Social History Tobacco Use Types Packs/Day Years [...] Orientation Straight 02/19/2025 9: 31 AM EDT Last Filed Vital Signs Vital Sign Reading Time Taken Comments Blood Pressure 154/88 02/23/2025 2:51 PM EDT Pulse 79 02/23/2025 2:51 PM EDT Temperature 36.7 C (98 F) 02/17/2025 9:14 AM EDT Respiratory Rate 16 02/17/2025 9:22 AM EDT Oxygen Saturation 97% 02/23/2025 2:51 PM EDT Inhaled Oxygen Concentration - - Weight 70.8 kg (156 lb) 02/17/2025 9:14 AM EDT Height 167.6 cm (5' 6 ) 04/10/2016 3:01 PM EDT Body Mass Index 25.18 04/10/2016 3:01 PM EDT Plan of Treatment Upcoming Encounters Date Type Department Care Team (Late st Contact Info) Description 05/22/2025 10:00 AM EDT Office Visit [facility] [address] [place] [address] Shobha Ivey NP [address] [place] [address] 06/04/2025 9:00 AM EDT Appointment [address] [address] Mu Macdonald MD [address] [place] [address] 10/22/2025 2:00 PM EDT Procedure visit [facility] [address] [place] [address] Mu Macdonald MD [address] [place] [address] Scheduled Procedures Name Priority Associated Diagnoses Date/Ti me REPLACEMENT OF CRANIAL NEUROSTIMULATOR 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, 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 End of battery life of deep brain stimulator Health Maintenance Due Date Last Done Comments Cologuard 1952 Colon Cancer Screening 1950 Colonoscopy 1952 FOBT / Fit Test 1952 Sigmoidoscopy 1952 DTaP,Tdap,and Td Vaccines (1 - Tdap) 1974 Pneumococcal Vaccine: 50+ Ye ars (1 of 1 - PCV) 2002 Zoster Vaccines (1 of 2) 2002 Alcohol/Substance Use Screening 08/13/2024 Depression Screening and Follow-Up 08/13/2024 Health Care Proxy Review 08/13/2024 Social Drivers of Health Rosmery ual Screening 08/13/2024 COVID-19 Vaccine (1 - 2023-2 5 season) 2025 Influenza Vaccine (#1) 2025 08/24/2017 RSV Vaccine (60+ years old a nd patients) (1 - 1-dose 75+ series) 12/31/2027 Hepatitis C Screening Completed 07/25/2011 Hepatitis B Vaccines Aged Out No long er eligible based on patient's age to complete this topic Procedures * Due to [place] [employer] law, this organization might not be sharing negative HIV tests. Procedure Name Priority Date/Time Associated Diagnosis Comments HEPATITIS PANEL, ACUTE Routine 07/25/2011 3:12 PM EST from Last 3 Months or Most Recently Relevant to Health Maintenance Results * Due to [facility] law, this organization might not be sharing negative HIV tests. * Hepatitis Panel, Acute (07/25/2011 3:12 PM EST) Hepatitis A IgM Antibody Negative Negative [facility] Hepatitis B Core IgM Antibody Negative Negative [facility] Hepatitis B Surface Ag Negative Negative [facility] Hepatitis C Antibody <0.02 <1.00 IV [facility] Comment: Negative Not infected with HCV, unless recent infection is suspected or other evidence exists to indicate HCV infection. 07/25/2011 3:12 PM EST 07/25/2011 3:49 PM EST us Patricia Martinez LAB BLOOD ORDERABLES Final Resul t [facility] [address] [place] [address], from Last 3 Months or Most Recently Relevant to Health Maintenance Insurance [facility] [place] [address] Care Teams Purchasing Clerk Relationship Specialty Start Date End Date Milly Leyva PCP - General Internal Medicine 02/17/25
--- OUTSIDE RECORDS SUMMARY | 2025-04-23 18:27 | XMS_ITS | Patient Health Record ---
Author Organization [facility] Address [address] [place] [address] Care Team Providers Care Tobacco Sprayer Name Role Phone CHACE OTERO Primary Care Provider [phone] ALLERGIES No Known Allergies RESULTS Component Value Reference Range Notes Comp. Metabolic Panel (14) Reviewed date:07/12/2024 04:34:50 PM Interpretation: Performing Lab:[facility], [facility], Phone - [phone], Director - Lluvia Notes/Report: Glucose 88 70-99 mg/dL BUN 17 8-27 mg/dL Creatinine 0.75 0.76-1.27 mg/dL eGFR 96 >59 mL/min/1.73 BUN/Creatinine Ratio 23 10-24 Sodium 140 134-144 mmol/L Potassium 4.1 3.5-5.2 mmol/L Chloride 101 96-106 mmol/L Carbon Dioxide, Total 27 20-29 mmol/L Calcium 9.2 8.6-10.2 mg/dL Protein, Total 6.4 6.0-8.5 g/dL Albumin 4.5 3.8-4.8 g/dL Globulin, Total 1.9 1.5-4.5 g/dL Bilirubin, Total 0.8 0.0-1.2 mg/dL Alkaline Phosphatase 64 44-121 IU/L AST (SGOT) 17 0-40 IU/L ALT (SGPT) 6 0-44 IU/L Lipid Panel Reviewed date:07/12/2024 04:35:10 PM Interpretation: Performing Lab:[facility], [facility], Phone - [phone], Director - Lluvia Notes/Report: Cholesterol, Total 208 100-199 mg/dL Triglycerides 107 0-149 mg/dL HDL Cholesterol 54 >39 mg/dL VLDL Cholesterol [place] 19 5-40 mg/dL LDL Chol Calc (NIH) 135 0-99 mg/dL LDL Calc Comment: Comp. Metabolic Panel (14) Reviewed date:11/09/2024 09:32:28 PM Interpretation: Performing Lab:[facility], [address] [place] [address], Phone - [phone], Director - Lluvia Notes/Report: Glucose 84 70-99 mg/dL BUN 22 8-27 mg/dL Creatinine 0.90 0.76-1.27 mg/dL eGFR 91 >59 mL/min/1.73 BUN/Creatinine Ratio 24 10-24 Sodium 142 134-144 mmol/L Potassium 4.1 3.5-5.2 mmol/L Chloride 103 96-106 mmol/L Carbon Dioxide, Total 25 20-29 mmol/L Calcium 9.3 8.6-10.2 mg/dL Protein, Total 7.1 6.0-8.5 g/dL Albumin 4.7 3.8-4.8 g/dL Globulin, Total 2.4 1.5-4.5 g/dL Bilirubin, Total 0.5 0.0-1.2 mg/dL Alkaline Phosphatase 76 44-121 IU/L AST (SGOT) 15 0-40 IU/L ALT (SGPT) 8 0-44 IU/L Lipid Panel Reviewed date:11/09/2024 09:32:40 PM Interpretation: Performing Lab:[facility], [address] [place] [address], Phone - [phone], Director - Lluvia Notes/Report: Cholesterol, Total 238 100-199 mg/dL Triglycerides 74 0-149 mg/dL HDL Cholesterol 65 >39 mg/dL VLDL Cholesterol [place] 13 5-40 mg/dL LDL Chol Calc (NIH) 160 0-99 mg/dL LDL Calc Comment: REASON FOR REFERRAL Reason REFER TO [facility] Diagnosis 1 Age-related nuclear cataract, bilateral (H25.13) Referral Organization [facility] Referring Provider First Name CHACE Referring Provider Last Name SHANNA Referring Provider Speciality Internal M edicine Referred Provider Specialty Ophthalmolog y General Notes Paty Dominguez 10:13:38 AM > referral started waiting on auth/notes Angelica saelem Pamela 09/24/2024 10:16:38 AM > referral and auth faxed to [facility] eye muldraugh Referral Priority Routine MEDICATIONS Medication SIG (Take, Route, Frequency, Duration) Notes Start Date End Date Status Azilect 1 MG 1 tablet Orally Once a day for 30 days Not-Taking traZODone HCl 100 MG 1/2 TABLET Orally O nce a day Active Sertraline HCl 100 MG 1/2 tablet Orally Once a day Active Memantine HCl 5 MG 1 tablet Orally Once a day for 30 day(s) 04/09/2024 Active Tobramycin-dexAMETHasone 0.3-0.05 % drops Ophthalmic 2 [...] tablet Orally On ce a day Not-Taking Inbrija 42 MG 2 capsules as needed Inhalation Five times a day Active Multivitamin - 1 tablet Orally Once a day for 30 day(s) Active Aricept 10 MG 1 tablet at bedtime Orally Once a day for 30 day(s) Active Carbidopa-Levodopa 25-100 MG 1 1/2 tablets as needed Orally Three times a day Active SOCIAL HISTORY Tobacco Use: Social History [...] Notes: Patient enjoys photography a nd reading Patient enjoys photography a nd reading Patient enjoys photography a nd reading Patient enjoys photography a nd reading Patient enjoys photography a nd reading Patient enjoys photography a nd reading Patient enjoys photography a nd reading Patient enjoys photography a nd reading Patient enjoys photography a nd reading Patient enjoys photography a nd reading Patient enjoys photography a nd reading Patient enjoys photography a nd reading Patient enjoys photography a nd reading Patient enjoys photography a nd reading Patient enjoys photography a nd reading PROBLEMS Problem Type ICD Code Onset Dates Problem Status W/U Status Risk SNOMED Code Notes Problem Hyperlipidemia, unspecified (E78.5) Active confirmed Hyperlipidemia (48669947) Problem Parkinson's disease (G20) Active confirmed Parkinson's disease (48137851) S/P DBP PLACEMENT Problem 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) Active confirmed Transient gl obal amnesia (430141902) Problem Obstructive sleep apnea (adult) (pediatric) (G47.33) Active confirmed Obstructive sleep apnea syndrome (disorder) (66877989) Problem Age-related nuclear cataract, bilateral (H25.13) Active confirmed Nuclear senile cataract (497873375) Problem Sialoadenitis, unspecified (K11.20) Active confirmed Sialoadenitis (97889391) Problem Gastro-esophagea l reflux disease without esophagitis (K21.9) Active confirmed Gastro-esophage a l reflux disease without esophagitis (635125678) Problem Osteoarthritis of knee, unspecified (M17.9) Active confirmed Osteoarthritis of knee (092159533) Problem Unsteadiness on feet (R26.81) Active confirmed Abnormal gait (58244353) Problem Repeated falls (R29.6) Active confirmed Recurrent falls (158907470) Problem Benign prostatic hyperplasia without lower urinary tract symptoms (N40.0) Active confirmed Benign pros tatic hypertrophy without outflow obstruction (890164721) Problem Dementia in other diseases classified elsewhere, moderate, without behavioral disturbance, psychotic disturbance, mood disturbance, and anxiety (F02.B0) Active confirmed Moderate dementia (disorder) (129611703325816 ) Problem Parkinson's disease with dyskinesia, with fluctuations (G20.B2) Active confirmed VITAL SIGNS Heart Rate 78 /min 11/04/2024 Blood pressure diastolic 80 mm Hg 11/04/2024 Oximetry 97 % 11/04/2024 Height 65 in 11/04/2024 Blood pressure systolic 130 mm Hg 11/04/2024 Weight 158 lbs 11/04/2024 BMI 26.29 kg/m2 11/04/2024 Encounters Encounter Location Date Provider Diagnosis Chace Otero MD [facility] [address] [place], [place] [id number] 06/11/2024 CHACE OTERO Acute atopic conjunctivitis, bilateral H10.13 ; Hyperlipidemia, unspecified E78.5 ; Parkinson's disease with dyskinesia, with fluctuations G20.B2 ; Dementia in other diseases classified elsewhere, moderate, without behavioral disturbance, psychotic disturbance, mood disturbance, and anxiety F02.B0 and Gastro-esophageal reflux disease without esophagitis K21.9 [facility] [address] [place], [place] [id number] 07/12/2024 [facility] [address] [place], [place] [id number] 09/11/2024 CHACE OTERO Hyperlipidemia, unspecified E78.5 ; Unsteadiness on feet R26.81 ; Parkinson's disease with dyskinesia, with fluctuations G20.B2 ; Dementia in other diseases classified elsewhere, moderate, without behavioral disturbance, psychotic disturbance, mood disturbance, and anxiety F02.B0 ; Gastro-esophageal reflux disease without esophagitis K21.9 ; Encounter for screening for malignant neoplasm of prostate Z12.5 and Age-related nuclear cataract, bilateral H25.13 [facility] [address] [place], [place] [id number] 09/11/2024 CHACE OTERO Encounter for genera adult medical examination with abnormal findings Z00.01 [facility] [address] [place], [place] [id number] 11/04/2024 CHACE OTERO Hyperlipidemia, unspecified E78.5 ; Unsteadiness on feet R26.81 ; Parkinson's disease with dyskinesia, with fluctuations G20.B2 ; Dementia in other diseases classified elsewhere, moderate, without behavioral disturbance, psychotic disturbance, mood disturbance, and anxiety F02.B0 and Gastro-esophageal reflux disease without esophagitis K21.9 [facility] [address] [place], [place] [id number] 12/24/2024 CHACE OTERO ASSESSMENTS Encounter Date Diagnosis Assessment Notes Treatment Notes Treatment Clinical Notes Section Notes 11/04/2024 Hyperlipidemia, unspecified (ICD-10 - E78.5) Dietary avoidance discussed 11/04/2024 Unsteadiness on feet (ICD-10 - R26.81) AVOID FALLS 09/11/2024 Hyperlipidemia, unspecified (ICD-10 - E78.5) Nutrition: low cholesterol/TG diet 09/11/2024 Unsteadiness on feet (ICD-10 - R26.81) 09/11/2024 Encounter for general adult medical examination with abnormal findings (ICD-10 - Z00.01) 06/11/2024 Acute atopic conjunctivitis, bilateral (ICD-10 - H10.13) Call for problems with medication, side effects or need for dosage change, Call if worse or not better in 2-3 days 06/11/2024 Hyperlipidemia, unspecified (ICD-10 - E78.5) Nutrition: low cholesterol/TG diet 09/11/2024 Parkinson's disease with dyskinesia, with fluctuations (ICD-10 - G20.B2) Continue current therapy 11/04/2024 Parkinson's disease with dyskinesia, with fluctuations (ICD-10 - G20.B2) Continue current therapy 06/11/2024 Parkinson's disease with dyskinesia, with fluctuations (ICD-10 - G20.B2) on PHYSICAL THERAPY 09/11/2024 Dementia in other diseases classified elsewhere, moderate, without behavioral disturbance, psychotic disturbance, mood disturbance, and anxiety (ICD-10 - F02.B0) Continue current therapy 11/04/2024 Dementia in other diseases classified elsewhere, moderate, without behavioral disturbance, psychotic disturbance, mood disturbance, and anxiety (ICD-10 - F02.B0) Continue current therapy 06/11/2024 Dementia in other diseases classified elsewhere, moderate, without behavioral disturbance, psychotic disturbance, mood disturbance, and anxiety (ICD-10 - F02.B0) Continue current therapy 11/04/2024 Gastro-esophageal reflux disease without esophagitis (ICD-10 - K21.9) Continue current therapy 09/11/2024 Gastro-esophageal reflux disease without esophagitis (ICD-10 - K21.9) Continue current therapy 06/11/2024 Gastro-esophageal reflux disease without esophagitis (ICD-10 - K21.9) Call for problems with medication, side effects or need for dosage change 09/11/2024 Encounter for screening for malignant neoplasm of prostate (ICD-10 - Z12.5) 09/11/2024 Age-related nuclear cataract, bilateral (ICD-10 - H25.13) REFER TO OPTHALMOLOGIST --AT [facility],S PLAN OF TREATMENT Pending Test Test Name Order Date X ray : LS Spine 04/09/2024 Future Test Test Name Order Date X ray : Knee, right 08/31/2016 X ray : Leg, right 08/31/2016 Ultrasound : Doppler : Veins Leg Right 0 08/31/2016 COMPREHENSIVE METABOLIC PANEL 08/31/2016 CBC (INCLUDES DIFF/PLT) 08/31/2016 LIPID PANEL 10/12/2016 COMPREHENSIVE METABOLIC PANEL 10/12/2016 CBC (INCLUDES DIFF/PLT) 10/12/2016 PSA, TOTAL 10/12/2016 Ultrasound : Carotid Doppler Bilateral 0 11/17/2016 LIPID PANEL 04/05/2017 COMPREHENSIVE METABOLIC PANEL 04/05/2017 CBC (INCLUDES DIFF/PLT) 04/05/2017 URINALYSIS, COMPLETE 04/05/2017 PSA, TOTAL 04/05/2017 LIPID PANEL 06/19/2017 COMPREHENSIVE METABOLIC PANEL 06/19/2017 CBC (INCLUDES DIFF/PLT) 06/19/2017 FERRITIN 06/19/2017 LIPID PANEL 10/18/2017 COMPREHENSIVE METABOLIC PANEL 10/18/2017 PSA, TOTAL 10/18/2017 LIPID PANEL 10/10/2023 COMPREHENSIVE METABOLIC PANEL 10/10/2023 CBC (INCLUDES DIFF/PLT) 10/10/2023 PSA, TOTAL 10/10/2023 LIPID PANEL 12/12/2023 COMPREHENSIVE METABOLIC PANEL 12/12/2023 LIPID PANEL 06/11/2024 COMPREHENSIVE METABOLIC PANEL 06/11/2024 LIPID PANEL 09/11/2024 COMPREHENSIVE METABOLIC PANEL 09/11/2024 Insurance Providers Payer Name Payer Address Payer Phone Subscriber Number Group Number Insured Name Patient Relationship to Insured Coverage Start Date Coverage End Date [facility] [address] [address] [place] [address] [id number] Sundar Flores Self - patient is the insured 4 [employer]UE CROSS / OUT [facility] [address] [place] [address] [phone] [id number] Sundar Flores Self - patient is the insured 1 MEDICAL (GENERAL) HISTORY Medical History History ICD Code LAST COLONOSCOPY-2012 ([facility]) [id number] LAST PROSTATE EXAM-2021 LAST DEXA SCAN-NEVER LAST EYE EXAM-09/08/2024 ([facility]), DX:IRMA CATARACTS, REPEAT AFTER CATARACT SURGERY LAST FLU VAX-2022 (HEALTH DEPT) LAST PNEUMONIA VAX-09/2024 PREVNAR-LIFETI ME (PUBLIX) RSV-06/2024 (PUBLIX) COVID-FIRST 2, ALL BOOSTERS, UPDATED BOOSTER-2022, NEW BOOSTER-06/2024 (PUBLIX) SHINGLES VAX-1ST DOSE-09/2024 (PUBLIX) 2N D DOSE SCHEDULED FOR 11/2024 Surgical History Surgery Date(Month/Year) DBS INSERTION (LEFT) 08/2017 NEUROTRANSMITTER INSERTION 09/2017 DBS INSERTION (RIGHT) 03/2018 CHOLESYSTECTOMY 06/2019 DBS BATTERY CHANGE 11/2020 DBS BATTERY CHANGE 07/2023 Hospitalization History Reason Date(Month/Year) altered mental status possible TIA 10/30 17 DBS phase leads placed into left side of brain (1) 08/2017 DBS phase neurotransmitter i nserted in right upper chest; leads connected (2) 09/2017 CHOLESYSTECTOMY 06/2019
--- OUTSIDE RECORDS SUMMARY | 2025-04-23 18:27 | XMS_ITS | Patient Health Record ---
Author Organization [facility] Address [address] [place] [address] Care Team Providers Care Puzzle Assembler Name Role Phone Britt (RETIRED) Madan BUCHANAN Primary Care Provide Ricardo Sams Jr Unavailable Allergies Allergen (clinical drug ingredient) Drug/Non Drug Allergy documented on EMR Reaction Allergy Type Onset Date Status seasonal (uncoded) Unknown Allergy A ctive Reason For Referral No Information Medications Medication SIG (Take, Route, Frequency, Duration) Notes Start Date End Date Status Sertraline HCl 100mg 1 po qd Active traZODone HCl 100mg 1 qd Active Neupro 4mg/24hr 1 patch qd Act brent[place] Carbidopa-Levodopa 25-100mg 6 per day Active Baclofen 100mg tid Activ e Azilect 0.5mg 2 at breakfast A ctive Multivitamins 1 qd Active Aspirin 81 mg 1 po qd Active ProAir HFA Active Vitamin D 1000iu prn Act brenton Problems Problem Type SNOMED Code ICD Code Onset Dates Problem Status W/U Status Risk Notes Problem Colon cancer screening (218793259) Colon cancer screening (V76.51) Active confirmed Problem Current use of aspirin (V58.66) Active confirmed Plan Of Treatment Future Test Test Name Order Date COLONOSCOPY 06/18/2013 Insurance Providers Payer Name Payer Address Payer Phone Subscriber Number Group Number Insured Name Patient Relationship to Insured Coverage Start Date Coverage End Date [facility] [address] [place], [place] [id number] CHAUFIORELLA Self - patient is the insured Medical (General) History Medical History History ICD Code Parkinson's disease sleep apnea
--- OUTSIDE RECORDS SUMMARY | 2025-04-23 18:27 | XMS_ITS | Patient Health Record ---
Author Organization [facility] [place] Address [address] [place] [address] Care Team Providers Care Drug Safety Specialist Name Role Phone Wojciech Reed MD Primary Care Provider Ana maxwell FIORELLA Mccann Unavailable Reason For Referral No Information Medications Medication SIG (Take, Route, Frequency, Duration) Notes Start Date End Date Status Sertraline HCl 100 MG 1 tablet Orally On ce a day Active traZODone HCl 100 MG 1 tablet at bedtime Orally Once a day Active Aspirin Adult Low Strength 81 MG 1 tablet Orally Once a day Active Multi Vitamin Daily - 1 tablet Orally On ce a day Active ProAir HFA 108 (90 Base) MCG/ACT 2 puffs as needed Inhalation every 4 hrs Active Fish Oil 1000 MG 1 capsule Orally Onc e a day Active Gabapentin 300 MG 1 capsule Orally Thr ee times a day Active Amitriptyline HCl 100 MG 1 tablet Orally Once a day Active Meloxicam 7.5 MG 1 tablet Orally Once a day Active Rytary 61.25-245 MG 1 capsule Orally Thr ee times a day Active Amantadine HCl 100 MG 1 tablet Orally Tw ice a day Active Social History Tobacco Use: Social History Observation Description Date Details (start date - stop date) Never Smoker NA - NA Tobacco Use: Question Answer Notes Are you a: never smoker Additional Findings: Tobacco Non-User Aggressive non-smoker Alcohol Screening: Question Answer Notes Did you have a drink containing alcohol in the p ast year? No Points 0 Interpretation Negative Smoking Question Answer Notes Are you a: never smoker Problems Problem Type SNOMED Code ICD Code Onset Dates Problem Status W/U Status Risk Notes Problem Sialoadenitis (96348838) Sialoadenitis, unspecified (K11.20) Active confirmed Plan Of Treatment No Information Insurance Providers Payer Name Payer Address Payer Phone Subscriber Number Group Number Insured Name Patient Relationship to Insured Coverage Start Date Coverage End Date DO NOT USE [facility] [address] [place] [address] [phone] [id number] FIORELLA RITCHIE Self - patient is the insured Medical (General) History Medical History History ICD Code asthma neuromuscular disorders sleep apnea neurological disorder
== END 2025-04-23 16:35 | disposition home or self-care (01) ==
LOC: HO.HMCFM 14:59
PROVIDERS: PCP Internal Medicine; Visit Provider Physician Assistant Medical
DX: J45.20 Mild intermittent asthma, uncomplicated (principal); G20.A1 Parkinson's disease without dyskinesia, without mention of fluctuations; R07.9 Chest pain, unspecified; E78.00 Pure hypercholesterolemia, unspecified; R49.0 Dysphonia

== ENCOUNTER → 2025-04-23 14:58 | Outpatient (BNVA) | payer OTHER, SELFPAY | PROVIDERS: PCP Internal Medicine; Visit Provider Physician Assistant Medical | DX: Z76.89 Persons encountering health services in other specified circumstances (principal); J45.20 Mild intermittent asthma, uncomplicated; G20.B1 Parkinson's disease with dyskinesia, without mention of fluctuations; R49.0 Dysphonia; R07.9 Chest pain, unspecified; E78.00 Pure hypercholesterolemia, unspecified; Z79.899 Other long term (current) drug therapy; Z13.31 Encounter for screening for depression; Z13.39 Encounter for screening examination for other mental health and behavioral disorders | CPT/HCPCS: 93005; 96127 ==

== ENCOUNTER 2025-06-24 08:57 | Outpatient (REF) | payer MEDICARE, SELFPAY ==
[2025-06-24 09:34] LABS: MANUAL DIFF FLAG NO
[2025-06-24 10:11] LABS: Hematocrit 41.5 % (42.0-52.0); Hemoglobin 13.8 g/dl (14.0-18.0); Imm Gran Abs Auto 0.02 X10*3/uL (0.00-0.03); Imm Gran Pct Auto 0.2 % (0.0-0.4); Lymphocytes Absolute Auto 1.3 X10*3/uL (1.2-4.9); Mean Corpuscular HGB Conc 33.3 g/dl (31.0-36.0); Mean Corpuscular Hemoglobin 30.8 pg (27.0-33.0); Mean Corpuscular Volume 92.6 fL (80.0-98.0); NRBC Abs Auto 0.000 X10*3/uL (0.0-0.012); NRBC Pct Auto 0.0 /100WBC (0.0-0.2); Platelet Count 245 X10*3/uL (160-400); Red Blood Count 4.48 X10*6/uL (4.60-5.80); White Blood Count 8.2 X10*3/uL (4.8-10.8)
[2025-06-24 10:18] LABS: INTERNATIONAL NORM RATIO 1.0 (0.9-1.1); Prothrombin Time 12.1 SEC (11.2-13.5)
[2025-06-24 10:57] LABS: Alanine Aminotransferase < 6 U/L (0-40); Albumin Level 4.7 g/dL (3.5-5.0); Alkaline Phosphatase 65 U/L (39-117); Anion Gap 14 (12-20); Aspartate Amino Transferase 24 U/L (5-37); Blood Urea Nitrogen 18 mg/dL (9-16); Calcium 9.2 mg/dL (8.4-10.2); Carbon Dioxide 26 mmol/L (22-29); Chloride 104 mmol/L (96-108); Estimated Glomerular Filt Rate > 60; Potassium 3.9 mmol/L (3.3-5.1); Sodium 140 mmol/L (135-145); Total Protein 7.4 g/dL (6.5-8.0)
== END 2025-06-24 08:58 | disposition home or self-care (01) ==
LOC: HO.LAB 08:57
PROVIDERS: PCP Physician Assistant Medical; Referring Provider Neurological Surgery; Visit Provider Physician Assistant Medical
DX: Z45.42 Encounter for adjustment and management of neurostimulator (principal); Z51.81 Encounter for therapeutic drug level monitoring; Z01.84 Encounter for antibody response examination
CPT/HCPCS: 36415; 80053; 85025; 85610; 86850; 86900; 86901

== ENCOUNTER → 2025-06-25 13:48 | Outpatient (REF) | payer MEDICARE, SELFPAY ==
--- OUTSIDE RECORDS SUMMARY | 2024-04-09 09:45 | XMS_ITS ---
Author Organization Chace Reed MD Address [address] [place] [address] Care Team Providers Care Health Care Facility Administrator Name Role Phone CHACE REED Primary Care Provider [phone] ALLERGIES No Known Allergies REASON FOR VISIT PATIENT HERE FOR 4 MONTH F/U, HAVING LOWER BACK PAIN, BURNING SENSATION IN LEFT HEEL, HAVING MUSCLESPASMS IN RIGHT CALF MOSTLY AT NIGHT, HAVING INCREASED MEMORY LOSS & SOME CONFUSION OVER THE PAST FEW MONTHS, DISCUSS GETTING MORE THERAPY VISITS AT A TIME, HAS RASH ON BACK, EXCESSIVE SWEATING, PATIENT HAS NO COMPLAINTS OF CHEST PAIN, TIGHTNESS/PRESSURE, PALPITATIONS, PATIENT HAS NO FURTHER CONCERNS OR COMPLAINTS REGARDING THIS VISIT-AD MEDICATIONS Medication SIG (Take, Route, Frequency, Duration) Notes Start Date End Date Status Memantine HCl 5 MG 1 tablet Orally Once a day for 30 day(s) 04/09/2024 Active Aricept 10 MG 1 tablet at bedtime Orally Once a day for 30 day(s) Active Multivitamin - 1 tablet Orally Once a day for 30 day(s) Active traZODone HCl 100 MG 1/2 TABLET Orally O nce a day Active Carbidopa-Levodopa 25-100 MG 1 1/2 tablets as needed Orally Three times a day Active Sertraline HCl 100 MG 1/2 tablet Orally Once a day Active Aspirin 325 MG 1 tablet Orally Once a day for 30 days Not-Taking Fish Oil 1000 MG 1 capsule Orally Onc e a day Not-Taking Azilect 1 MG 1 tablet Orally Once a day for 30 days Not-Taking Multi Vitamin Daily - 1 tablet Orally On ce a day Not-Taking SOCIAL HISTORY Tobacco Use: Social History Observation Description Date Details (start date - stop date) Former Smoker NA - NA Sex Assigned At : Social History Observation Description Sex Assigned At Unknown Tobacco Use/Smoking Question Answer Notes Are you a former smoker How long has it been since you last smoked? > 10 years Section Notes: Patient enjoys photography a nd reading VITAL SIGNS Blood pressure systolic 115 mm Hg 04/09/20 24 Blood pressure diastolic 60 mm Hg 024 Heart Rate 88 /min 04/09/2024 Height 65 in 04/09/2024 Weight 148 lbs 04/09/2024 BMI 24.63 kg/m2 04/09/2024 Oximetry 96 % 04/09/2024 Encounters Encounter Location Date Provider Diagnosis [facility] [address] [place], [place] [phone] 04/09/2024 CHACE REED Dementia in other diseases classified elsewhere, moderate, without behavioral disturbance, psychotic disturbance, mood disturbance, and anxiety F02.B0 ; Low back pain, unspecified M54.50 ; Rash and other nonspecific skin eruption R21 ; Parkinson's disease with dyskinesia, with fluctuations G20.B2 and Unsteadiness on feet R26.81 ASSESSMENTS Encounter Date Diagnosis Assessment Notes Treatment Notes Treatment Clinical Notes Section Notes 04/09/2024 Dementia in other diseases classified elsewhere, moderate, without behavioral disturbance, psychotic disturbance, mood disturbance, and anxiety (ICD-10 - F02.B0) Call for problems with medication, side effects or need for dosage change 04/09/2024 Low back pain, unspecified (ICD-10 - M54.50) FOLLOW X-RAY REPORT 04/09/2024 Rash and other nonspecific skin eruption (ICD-10 - R21) ON UPPER BACK REFER TO [facility] 04/09/2024 Parkinson's disease with dyskinesia, with fluctuations (ICD-10 - G20.B2) s/p DBP PLACEMENT REFER TO [facility] 04/09/2024 Unsteadiness on feet (ICD-10 - R26.81) AVOID FALLS PLAN OF TREATMENT Medication Medication Name Sig Start Date Stop Date Notes Memantine HCl 5 MG 1 tablet Orally Once a day for 30 day(s) 04/09/2024 Treatment Notes Assessment Notes Dementia in other diseases c lassified elsewhere, moderate, without behavioral disturbance, psychotic disturbance, mood disturbance, and anxiety Call for problems with medication, side effects or need for dosage change Low back pain, unspecified FOLLOW X-RAY REPORT Rash and other nonspecific skin eruption REFER TO [facility] Parkinson's disease with dys kinesia, with fluctuations REFER TO [facility] Unsteadiness on feet AVOID FALLS Pending Test Test Name Order Date X ray : LS Spine 04/09/2024 Next Appt Details Follow Up: 2 Months, Reason: Progress Notes * Examination Category Sub-Category Detail Notes Category Not es General Examination GENERAL APPEARANCE: in no acute distress, well developed, well nourished USES A CANE NECK/THYROID: neck supple, full ra nge of motion, no cervical lymphadenopathy HEART: no murmurs, regular rate and rhythm, S1, S2 normal LUNGS: clear to auscultatio n bilaterally ABDOMEN: normal, bowel sounds present, soft, nontender, nondistended NEUROLOGIC: alert and oriented SKIN: ERYTHEMA ON UPPER BA CK EXTREMITIES: no clubbing, cyanosi s, or edema PERIPHERAL PULSES: 2+ dorsalis pedis
--- OUTSIDE RECORDS SUMMARY | 2024-04-21 05:30 | XMS_ITS ---
Author Organization Chace Otero MD Address [address] [place] [address] Care Team Providers Care Wireworker Name Role Phone CHACE OTERO Primary Care Provider REASON FOR VISIT 4 MONTH F/U Encounters Encounter Location Date Provider Diagnosis [facility] [address] [place], [place] [phone] 04/21/2024 CHACE OTERO PLAN OF TREATMENT No Information
--- OUTSIDE RECORDS SUMMARY | 2024-06-11 12:30 | XMS_ITS ---
Author Organization Chace Reed MD Address [address] [place] [address] Care Team Providers Care Wire Coating Machine Operator Name Role Phone CHACE REED Primary Care Provider ALLERGIES No Known Allergies REASON FOR VISIT PATIENT HERE FOR 2 MONTH F/U, REVIEW XRAY LUMBAR SPINE, RESULTS IN CHART, LAST WEEK WAS HAVING SOMEACID REFLUX, HAVING SEVERE ITCHY EYES, PATIENT STATES PAIN LEVEL IS AT: 1, PATIENT HAS NO COMPLAINTS OF CHEST PAIN, TIGHTNESS/PRESSURE, PALPITATIONS, PATIENT HAS NO FURTHER CONCERNS OR COMPLAINTS REGARDING THIS VISIT-AD MEDICATIONS Medication SIG (Take, Route, Frequency, Duration) Notes Start Date End Date Status Multivitamin - 1 tablet Orally Once a day for 30 day(s) Active Aricept 10 MG 1 tablet at bedtime Orally Once a day for 30 day(s) Active Azilect 1 MG 1 tablet Orally Once a day for 30 days Not-Taking Multi Vitamin Daily - 1 tablet Orally On ce a day Not-Taking Aspirin 325 MG 1 tablet Orally Once a day for 30 days Not-Taking Pantoprazole Sodium 20 MG 1 tablet 1/2 t o 1 hour before morning meal Orally Once a day for 30 day(s) 06/11/2024 Active Sertraline HCl 100 MG 1/2 tablet Orally Once a day Active Memantine HCl 5 MG 1 tablet Orally Once a day for 30 day(s) 04/09/2024 Active traZODone HCl 100 MG 1/2 TABLET Orally O nce a day Active Fish Oil 1000 MG 1 capsule Orally Onc e a day Not-Taking Carbidopa-Levodopa 25-100 MG 1 1/2 tablets as needed Orally Three times a day Active Tobramycin-dexAMETHasone 0.3-0.05 % drops Ophthalmic 2 drops Three times a day for 7 day(s) 06/11/2024 Active SOCIAL HISTORY Tobacco Use: Social History Observation Description Date Details (start date - stop date) Former Smoker NA - NA Sex Assigned At : Social History Observation Description Sex Assigned At Unknown Tobacco Use/Smoking Question Answer Notes Are you a former smoker How long has it been since you last smoked? > 10 years Section Notes: Patient enjoys photography a nd reading PROBLEMS Problem Type ICD Code Onset Dates Problem Status W/U Status Risk SNOMED Code Notes Problem Parkinson's disease with dyskinesia, with fluctuations (G20.B2) Active confirmed Problem Dementia in other diseases classified elsewhere, moderate, without behavioral disturbance, psychotic disturbance, mood disturbance, and anxiety (F02.B0) Active confirmed Moderate dementia (disorder) ([id number] 0) Problem Gastro-esophagea l reflux disease without esophagitis (K21.9) Active confirmed Gastro-esophage al reflux disease without esophagitis ([id number]) VITAL SIGNS Blood pressure systolic 125 mm Hg 06/11/20 24 Blood pressure diastolic 75 mm Hg 024 Heart Rate 78 /min 06/11/2024 Height 65 in 06/11/2024 Weight 146 lbs 06/11/2024 BMI 24.29 kg/m2 06/11/2024 Oximetry 97 % 06/11/2024 Encounters Encounter Location Date Provider Diagnosis [facility] [address] [place], [place] [phone] 06/11/2024 CHACE REED Acute atopic conjunctivitis, bilateral H10.13 ; Hyperlipidemia, unspecified E78.5 ; Parkinson's disease with dyskinesia, with fluctuations G20.B2 ; Dementia in other diseases classified elsewhere, moderate, without behavioral disturbance, psychotic disturbance, mood disturbance, and anxiety F02.B0 and Gastro-esophageal reflux disease without esophagitis K21.9 ASSESSMENTS Encounter Date Diagnosis Assessment Notes Treatment Notes Treatment Clinical Notes Section Notes 06/11/2024 Acute atopic conjunctivitis, bilateral (ICD-10 - H10.13) Call for problems with medication, side effects or need for dosage change, Call if worse or not better in 2-3 days 06/11/2024 Hyperlipidemia, unspecified (ICD-10 - E78.5) Nutrition: low cholesterol/TG diet 06/11/2024 Parkinson's disease with dyskinesia, with fluctuations (ICD-10 - G20.B2) on PHYSICAL THERAPY 06/11/2024 Dementia in other diseases classified elsewhere, moderate, without behavioral disturbance, psychotic disturbance, mood disturbance, and anxiety (ICD-10 - F02.B0) Continue current therapy 06/11/2024 Gastro-esophageal reflux disease without esophagitis (ICD-10 - K21.9) Call for problems with medication, side effects or need for dosage change PLAN OF TREATMENT Medication Medication Name Sig Start Date Stop Date Notes Pantoprazole Sodium 20 MG 1 tablet 1/2 t o 1 hour before morning meal Orally Once a day for 30 day(s) 06/11/2024 Tobramycin-dexAMETHasone 0.3-0.05 % drops Ophthalmic 2 drops Three times a day for 7 day(s) 06/11/2024 Treatment Notes Assessment Notes Acute atopic conjunctivitis, bilateral C all for problems with medication, side effects or need for dosage change, Call if worse or not better in 2-3 days Hyperlipidemia, unspecified Nutrition: l ow cholesterol/TG diet Parkinson's disease with dys kinesia, with fluctuations on PHYSICAL THERAPY Dementia in other diseases c lassified elsewhere, moderate, without behavioral disturbance, psychotic disturbance, mood disturbance, and anxiety Continue current therapy Gastro-esophageal reflux dis ease without esophagitis Call for problems with medication, side effects or need for dosage change Future Test Test Name Order Date LIPID PANEL 06/11/2024 COMPREHENSIVE METABOLIC PANEL 06/11/2024 Next Appt Details Follow Up: 3 Months, Reason: Progress Notes * Examination Category Sub-Category Detail Notes Category Not es General Examination GENERAL APPEARANCE: in no ac jackson distress, well developed, well nourished EYES: conjunctiva injected NECK/THYROID: neck supple, full ra nge of motion, no cervical lymphadenopathy HEART: no murmurs, regular rate and rhythm, S1, S2 normal LUNGS: clear to auscultatio n bilaterally ABDOMEN: normal, bowel sounds present, soft, nontender, nondistended NEUROLOGIC: alert and oriented,u nsteady gait EXTREMITIES: no clubbing, cyanosi s, or edema
--- OUTSIDE RECORDS SUMMARY | 2024-07-12 11:34 | XMS_ITS ---
Author Organization Chace Otero MD Address [address] [facility] [place] [address] Care Team Providers Care Floor Tech Name Role Phone CHACE OTERO Primary Care Provider Encounters Encounter Location Date Provider Diagnosis [facility] [address] [place], [place] [phone] 07/12/2024 CHACE OTERO PLAN OF TREATMENT No Information
--- OUTSIDE RECORDS SUMMARY | 2024-08-30 04:00 | XMS_ITS ---
Author Organization [facility] Address [address] [facility] [address] [place] [address] Care Team Providers Care Director Orange Name Role Phone Migration, Provider Unavailable Unavailable REASON FOR VISIT EMR-Agapito Encounters Encounter Location Date Provider Diagnosis [facility] [address] [facility] [address] [place] [address] 08/30/2024 Provider Migration Plan Of Treatment No Information Progress Notes * FIORELLA RITCHIE SDOB:[birth year] (74 yo M)Acc No.[id number]:08/30/2024 Patient: Ash ANTONUlisesFIORELLA :1950 A ge:73 Y S ex:Male Phone: Address:[address] [place] [address], [address] Subjective: * Chief Complaints: * E MR-Agapito * * Date:
--- OUTSIDE RECORDS SUMMARY | 2024-08-31 04:00 | XMS_ITS ---
Author Organization [facility] Address [address] [facility] [address] [place] [address] Care Team Providers Care Food Expeditor Name Role Phone Migration, Provider Unavailable Unavailable REASON FOR VISIT EMR-Agapito Encounters Encounter Location Date Provider Diagnosis [facility] [address] [facility] [address] [place] [address] 08/31/2024 Provider Migration Plan Of Treatment No Information Progress Notes * FIORELLA RITCHIE SDOB:[birth year] (74 yo M)Acc No.[id number]:08/31/2024 Patient: Ash ANTONUlisesFIORELLA :1950 A ge:73 Y S ex:Male Phone: Address:[address] [place] [address], [address] Subjective: * Chief Complaints: * E MR-Agapito * * Date:
--- OUTSIDE RECORDS SUMMARY | 2024-09-11 08:45 | XMS_ITS ---
Author Organization Chace Otero MD Address [address] [place] [address] Care Team Providers Care Power Switchboard Operator Name Role Phone CHACE OTERO Primary Care Provider ALLERGIES No Known Allergies REASON FOR VISIT PATIENT HERE FOR 3 MONTH F/U, LAB REVIEW, RESULTS IN CHART, NEEDS REFERRAL FOR [facility]THAMOLOGIST ([facility]), PATIENT STATES PAIN LEVEL IS AT: 1, PATIENT HAS NO COMPLAINTS OF CHEST PAIN, TIGHTNESS/PRESSURE, PALPITATIONS, PATIENT HAS NO FURTHER CONCERNS OR COMPLAINTS REGARDING THIS VISIT-AD MEDICATIONS Medication SIG (Take, Route, Frequency, Duration) Notes Start Date End Date Status traZODone HCl 100 MG 1/2 TABLET Orally O nce a day Active Carbidopa-Levodopa 25-100 MG 1 1/2 tablets as needed Orally Three times a day Active Aricept 10 MG 1 tablet at bedtime Orally Once a day for 30 day(s) Active Multivitamin - 1 tablet Orally Once a day for 30 day(s) Active Inbrija 42 MG 2 capsules as needed Inhalation Five times a day Active Azilect 1 MG 1 tablet Orally Once a day for 30 days Not-Taking Multi Vitamin Daily - 1 tablet Orally On ce a day Not-Taking Aspirin 325 MG 1 tablet Orally Once a day for 30 days Not-Taking Fish Oil 1000 MG 1 capsule Orally Onc e a day Not-Taking Pantoprazole Sodium 20 MG 1 tablet 1/2 t o 1 hour before morning meal Orally Once a day for 30 day(s) 06/11/2024 Active Memantine HCl 5 MG 1 tablet Orally Once a day for 30 day(s) 04/09/2024 Active Sertraline HCl 100 MG 1/2 tablet Orally Once a day Active Tobramycin-dexAMETHasone 0.3-0.05 % drops [...] since you last smoked? > 10 years Additional Findings: Tobacco Non-User Current no n-smoker Alcohol Screen (Audit-C) Question Answer Notes Did you have a drink containing alcohol in the p ast year? No Points 0 Interpretation Negative Section Notes: Patient enjoys photography a nd reading PROBLEMS Problem Type ICD Code Onset Dates Problem Status W/U Status Risk SNOMED Code Notes Problem Age-related nuclear cataract, bilateral (H25.13) Active confirmed Nuclear senile cataract ([id number]) VITAL SIGNS Blood pressure systolic 115 mm Hg 09/11/19 25 Blood pressure diastolic 60 mm Hg 025 Heart Rate 83 /min 09/11/2024 Height 65 in 09/11/2024 Weight 152 lbs 09/11/2024 BMI 25.29 kg/m2 09/11/2024 Oximetry 95 % 09/11/2024 Encounters Encounter Location Date Provider Diagnosis Chace Otero MD [facility] [address] [place], [place] [id number] 09/11/2024 CHACE OTERO Hyperlipidemia, unspecified E78.5 ; Unsteadiness on feet R26.81 ; Parkinson's disease with dyskinesia, with fluctuations G20.B2 ; Dementia in other diseases classified elsewhere, moderate, without behavioral disturbance, psychotic disturbance, mood disturbance, and anxiety F02.B0 ; Gastro-esophageal reflux disease without esophagitis K21.9 ; Encounter for screening for malignant neoplasm of prostate Z12.5 and Age-related nuclear cataract, bilateral H25.13 ASSESSMENTS Encounter Date Diagnosis Assessment Notes Treatment Notes Treatment Clinical Notes Section Notes 09/11/2024 Hyperlipidemia, unspecified (ICD-10 - E78.5) Nutrition: low cholesterol/TG diet 09/11/2024 Unsteadiness on feet (ICD-10 - R26.81) 09/11/2024 Parkinson's disease with dyskinesia, with fluctuations (ICD-10 - G20.B2) Continue current therapy 09/11/2024 Dementia in other diseases classified elsewhere, moderate, without behavioral disturbance, psychotic disturbance, mood disturbance, and anxiety (ICD-10 - F02.B0) Continue current therapy 09/11/2024 Gastro-esophageal reflux disease without esophagitis (ICD-10 - K21.9) Continue current therapy 09/11/2024 Encounter for screening for malignant neoplasm of prostate (ICD-10 - Z12.5) 09/11/2024 Age-related nuclear cataract, bilateral (ICD-10 - H25.13) REFER TO OPTHALMOLOGIST --AT [facility] PLAN OF TREATMENT Treatment Notes Assessment Notes Hyperlipidemia, unspecified Nutrition: l ow cholesterol/TG diet Parkinson's disease with dys kinesia, with fluctuations Continue current therapy Dementia in other diseases c lassified elsewhere, moderate, without behavioral disturbance, psychotic disturbance, mood disturbance, and anxiety Continue current therapy Gastro-esophageal reflux dis ease without esophagitis Continue current therapy Age-related nuclear cataract, bilateral REFER TO OPTHALMOLOGIST--AT [facility], Future Test Test Name Order Date LIPID PANEL 09/11/2024 COMPREHENSIVE METABOLIC PANEL 09/11/2024 Next Appt Details Follow Up: 2 Months, Reason: Progress Notes * Examination Category Sub-Category Detail Notes Category Not es General Examination GENERAL APPEARANCE: in no ac [place] distress, well developed, well nourished HEART: no murmurs, regular rate and rhythm, S1, S2 normal LUNGS: clear to auscultatio n bilaterally ABDOMEN: normal, bowel sounds present, soft, nontender, nondistended NEUROLOGIC: alert and oriented unsteady gait EXTREMITIES: no clubbing, cyanosi s, or edema PERIPHERAL PULSES: 2+ dorsalis pedis
--- OUTSIDE RECORDS SUMMARY | 2024-09-11 09:00 | XMS_ITS ---
Author Organization Chace Otero MD Address [address] [place] [address] Care Team Providers Care Process Improvement Specialist Name Role Phone CHACE OTERO Primary Care Provider REASON FOR VISIT PATIENT HERE TODAY FOR AWV MEDICATIONS Medication SIG (Take, Route, Frequency, Duration) Notes Start Date End Date Status Azilect 1 MG 1 tablet Orally Once [...] a day for 30 day(s) 06/11/2024 Active traZODone HCl 100 MG 1/2 TABLET Orally O nce a day Active Carbidopa-Levodopa 25-100 MG 1 1/2 tablets as needed Orally Three times a day Active Tobramycin-dexAMETHasone 0.3-0.05 % drops Ophthalmic 2 drops Three times a day for 7 day(s) 06/11/2024 Active Memantine HCl 5 MG 1 tablet Orally Once a day for 30 day(s) 04/09/2024 Active Sertraline HCl 100 MG 1/2 tablet Orally Once a day Active Aricept 10 MG 1 tablet at bedtime Orally Once a day for 30 day(s) Active Multivitamin - 1 tablet Orally Once a day for 30 day(s) Active Inbrija 42 MG 2 capsules as needed Inhalation Five times a day Active VITAL SIGNS Blood pressure systolic 115 mm Hg 09/11/19 25 Blood pressure diastolic 60 mm Hg 025 Heart Rate 83 /min 09/11/2024 Height 65 in 09/11/2024 Weight 152 lbs 09/11/2024 BMI 25.29 kg/m2 09/11/2024 Oximetry 95 % 09/11/2024 Encounters Encounter Location Date Provider Diagnosis Chace Otero MD [facility] [address] [place], [place] [id number] 09/11/2024 CHACE OTERO Encounter for genera l adult medical examination with abnormal findings Z00.01 ASSESSMENTS Encounter Date Diagnosis Assessment Notes Treatment Notes Treatment Clinical Notes Section Notes 09/11/2024 Encounter for general adult medical examination with abnormal findings (ICD-10 - Z00.01) PLAN OF TREATMENT No Information History and Physical Notes * HPI (History of Present Illness) Category Sub-Category Detail Notes Category Not es Depression Screening PHQ-9 Little inte rest or pleasure in doing things: Several days Feeling down, depressed, or hopeless: No t at all Trouble falling or staying asleep, or sl eeping too much: Several days Feeling tired or having little energy: N ot at all Poor appetite or overeating: Not at all Feeling bad about yourself o r that you are a failure, or have let yourself or your family down: Not at all Trouble concentrating on thi ngs, such as reading the newspaper or watching television: Not at all Moving or speaking so slowly that other people could have noticed; or the opposite, being so fidgety or restless that you have been moving around a lot more than usual: Nearly every day Thoughts that you would be b kristin off or of hurting yourself in some way: Not at all Total Score: 5 Interpretation: Mild Depression Medicare Annual Visit Type of Visit --: Subsequent Annual Wellness Visit Language or Communication barrier addressed -: Y es Immunization Status addressed -: Yes Vision Screening -: Not done Depression Screening -: PHQ9 done Hearing Screening -: Not done Fall Risk and Home Safety -: Negative, n o falls in the past year, no difficulty walking, or getting out of bed or chair Get Up and Go Evaluation: under 20 secon ds Medication evaluation and reconcilliatio n performed: Yes Vision screening recommended: Yes Literature offered to the patient: Yes Referrals: physical therapy offered for gait balance and mobility evaluation, fall prevention home evauation offered, DEXA screening offered Psychosocial Risks -: No overt psychoso cial risks shown, observed, or mentioned Cognitive Screening -: No overt cognitiv e deficiency is apparent by direct observation Patient was given 3 words at beginning of assessment and asked to repeat at end of assessment. Patient Care Team PCP Dr. Chace Otero Patient Care Team Health Risk Assessment In [facility], would you say your health is: : Very Good How have things been going f or you during the past 4 weeks? : Very Well; could hardly be better How confident are you that y ou can control and manage most of your health problems/ issues?: Very confident How often in the last 4 week s have you been bothered by any of the following problems? : Yes Falling or dizzy when standing up: Often Sexual problems or concerns: Never Trouble eating well: Never Teeth or denture problems: Never Problems using the phone: Never Tiredness or fatigue: Never Problems sleeping: Never Have you fallen 2 or more ti mes in the past year: Yes Are you afraid of falling? : No Do you feel unsteady: AT TIMES Do you experience incontinence?: No Are entrance ways well lit: Yes Are sidewalks/ entrance ways maintained? : Yes Is a carbon monoxide detector installed: Yes Are smoke detectors installed: Yes Are all medicines kept in or ginal containers with original labels intact: Yes Do you throw out all unident ified or out of date medications : Yes How often do you have troubl e taking medications the way they prescribed: I take them as prescribed Are you having difficulties driving your car: N/A, I do not use a car How often in the last 4 week s have you experienced the following : Yes Straining to understand conversation: Never Trouble hearing in a noisy background: Sometimes Misunderstanding what others are saying: Never During the past 4 weeks how much have you been bothered by feelings of anxiety, depression, irritability or sadness: Not at all During the past 4 weeks, has your physcial or emotional health limited your social activities with family and friends: Not at all During the past 4 weeks, how much bodily pains have you generally had: Mild pain Do you have someone who is a vailable to help you if you needed or wanted help: Yes, as much as I want/ need Because of any health proble ms, do you need help of another person with shopping, preparation of meals, or house work: No Because of any health proble ms, do you need the help of another person with your personal care needs, such as eating, bathing, dressing, or getting aroun the house: No Can you handle your own money without he lp: Yes During the past 4 weeks, did you exercise for about 20 minutes, 3 or more days of a week: No, I am not currently exercising Are you a smoker/ tobacco user: No, julio césar dempsey In the past 7 days, on how m any days did you drink alcohol: 0 On days you drank alcohol, h ow often did you have 4 or more drinks: Never Do you have an Advance Directive: No When did you get your last FLU VACCINE: 2022 PER PATIENT When did you get your last PNEUMONIA VAC CINE: 2016 PER PATIENT When was your most recent PSA drawn: PER PATIENT When was your most recent COLONOSCOPY do ne: 2012 PER PATIENT/ COLOGUARD 2021 When was your most recent A1C drawn: NOT DIABETIC When was your most recent EYE EXAM done: 08/[address]/ PER PATIENT When was your most recent Dexa Scan perf ormed?: NO RESULTS IN CHART When was your most Carotid Ultrasound pe rformed?: NO RESULTS IN CHART When was your most recent Ab dominal Aortic Ultrasound performed?: NO RESULTS IN CHART
--- OUTSIDE RECORDS SUMMARY | 2024-11-04 09:30 | XMS_ITS ---
Author Organization Chace Otero MD Address [address] [place] [address] Care Team Providers Care Spiral Spring Winder Name Role Phone CHACE OTERO Primary Care Provider [phone] ALLERGIES No Known Allergies REASON FOR VISIT PATIENT HERE TODAY FOR 2 MONTH F/U, LAB REVIEW, RESULTS IN CHART, FYI-THIS IS HIS LAST VISIT HERE HE IS MOVING TO [place] IN ABOUT 2 WEEKS, PATIENT STATES PAIN LEVEL IS AT: 1, PATIENT HAS NOCOMPLAINTS OF CHEST PAIN, TIGHTNESS/PRESSURE, PALPITATIONS, PATIENT HAS NO FURTHER CONCERNS OR COMPLAINTS REGARDING THIS VISIT-AD MEDICATIONS Medication SIG (Take, Route, Frequency, Duration) Notes Start Date End Date Status Azilect 1 MG 1 tablet Orally Once a day for 30 days Not-Taking Inbrija 42 MG 2 capsules as needed Inhalation Five times a day Active Multivitamin - 1 tablet Orally Once a day for 30 day(s) Active Aricept 10 MG 1 tablet at bedtime Orally Once a day for 30 day(s) Active Carbidopa-Levodopa 25-100 MG 1 1/2 tablets as needed Orally Three times a day Active Tobramycin-dexAMETHasone 0.3-0.05 % drops Ophthalmic 2 drops Three times a day for 7 day(s) 06/11/2024 Active Pantoprazole Sodium 20 MG TAKE 1 TABLET BY MOUTH DAILY 0.5 TO 1 HOUR BEFORE BREAKFAST for 90 Active Fish Oil 1000 MG 1 capsule Orally Onc e a day Not-Taking Aspirin 325 MG 1 tablet Orally Once a day for 30 days Not-Taking Multi Vitamin Daily - 1 tablet Orally On ce a day Not-Taking traZODone HCl 100 MG 1/2 TABLET Orally O nce a day Active Sertraline HCl 100 MG 1/2 tablet Orally Once a day Active Memantine HCl 5 MG 1 tablet Orally Once a day for 30 day(s) 04/09/2024 Active SOCIAL HISTORY Tobacco Use: Social History [...] ast year? No Points 0 Interpretation Negative Tobacco use other than smoking: Question Answer Notes Are you an other tobacco user? No Section Notes: Patient enjoys photography a nd reading VITAL SIGNS Blood pressure systolic 130 mm Hg 11/05/19 Blood pressure diastolic 80 mm Hg 025 Heart Rate 78 /min 11/04/2024 Height 65 in 11/04/2024 Weight 158 lbs 11/04/2024 BMI 26.29 kg/m2 11/04/2024 Oximetry 97 % 11/04/2024 Encounters Encounter Location Date Provider Diagnosis Chace Otero MD PA [address] [place], [place] [id number] 11/04/2024 CHACE OTERO Hyperlipidemia, unspecified E78.5 ; Unsteadiness on feet R26.81 ; Parkinson's disease with dyskinesia, with fluctuations G20.B2 ; Dementia in other diseases classified elsewhere, moderate, without behavioral disturbance, psychotic disturbance, mood disturbance, and anxiety F02.B0 and Gastro-esophageal reflux disease without esophagitis K21.9 ASSESSMENTS Encounter Date Diagnosis Assessment Notes Treatment Notes Treatment Clinical Notes Section Notes 11/04/2024 Hyperlipidemia, unspecified (ICD-10 - E78.5) Dietary avoidance discussed 11/04/2024 Unsteadiness on feet (ICD-10 - R26.81) AVOID FALLS 11/04/2024 Parkinson's disease with dyskinesia, with fluctuations (ICD-10 - G20.B2) Continue current therapy 11/04/2024 Dementia in other diseases classified elsewhere, moderate, without behavioral disturbance, psychotic disturbance, mood disturbance, and anxiety (ICD-10 - F02.B0) Continue current therapy 11/04/2024 Gastro-esophageal reflux disease without esophagitis (ICD-10 - K21.9) Continue current therapy PLAN OF TREATMENT Treatment Notes Assessment Notes Hyperlipidemia, unspecified Dietary avoi dance discussed Unsteadiness on feet AVOID FALLS Parkinson's disease with dyskinesia, wit h fluctuations Continue current therapy Dementia in other diseases c lassified elsewhere, moderate, without behavioral disturbance, psychotic disturbance, mood disturbance, and anxiety Continue current therapy Gastro-esophageal reflux disease without esophagitis Continue current therapy Next Appt Details Follow Up: LEAVING TO [facility], Reason: Progress Notes * Examination Category Sub-Category Detail Notes Category Not es General Examination GENERAL APPEARANCE: in no ac joshua distress, well developed, well nourished NECK/THYROID: neck supple, full ra nge of motion, no cervical lymphadenopathy HEART: no murmurs, regular rate and rhythm, S1, S2 normal LUNGS: clear to auscultatio n bilaterally ABDOMEN: normal, bowel sounds present, soft, nontender, nondistended NEUROLOGIC: alert and oriented, gait unsteady EXTREMITIES: no clubbing, cyanosi s, or edema
--- OUTSIDE RECORDS SUMMARY | 2024-12-24 06:00 | XMS_ITS ---
Author Organization Chace Otero MD Address [address] [place] [address] Care Team Providers Care Cone Winder Name Role Phone CHACE OTERO Primary Care Provider ALLERGIES No Known Allergies REASON FOR VISIT PATIENT HERE TODAY FOR YEARLY [facility] ANNUAL WELLNESS VISIT- ADIS, PATIENT WAS GIVEN ACID REFLUX HELP GUIDE, PATIENT WAS GIVEN DEMENTIA SYMPTOMS, TYPES, AND CAUSES HELP GUIDE SOCIAL HISTORY Tobacco Use: Social History Observation Description Date Details (start date - stop date) Former Smoker NA - NA Sex Assigned At : Social History Observation Description Sex Assigned At Unknown Tobacco Use/Smoking Question Answer Notes Are you a former smoker How long has it been since you last smoked? > 10 years Additional Findings: Tobacco Non-User Current no n-smoker Tobacco use other than smoking: Question Answer Notes Are you an other tobacco user? No Section Notes: Patient enjoys photography a nd reading Encounters Encounter Location Date Provider Diagnosis Chace Otero [place] [address] [place], [place] [id number] 12/24/2024 CHACE OTERO PLAN OF TREATMENT No Information History and Physical Notes * HPI (History of Present Illness) Category Sub-Category Detail Notes Category Not es Medicare Annual Visit Type of Visit --: Subseq uent Annual Wellness Visit Language or Communication barrier [...] Otero Patient Care Team Health Risk Assessment When di d you get your last FLU VACCINE: 2022 When did you get your last P NEUMONIA VACCINE: 09/2024 When was your most recent PSA drawn: 202 2 PER PATIENT When was your most recent COLONOSCOPY do ne: COLONOSCOPY- 2012 COLOGUARD- 2021/ NEGATIVE When was your most recent EY E EXAM done: 08/2024 When was your most recent De xa Scan performed?: NO RESULTS IN CHART When was your most Carotid U ltrasound performed?: NO RESULTS IN CHART When was your most recent Ab dominal Aortic Ultrasound performed?: / NO RESULTS IN CHART
--- NOTE | 2025-06-25 13:51 | CA_ITS ---
Transthoracic Echocardiogram Patient (Last, First, Middle): Sundar Flores S Gender: M Date of : 1950 Age: 74 Procedure Date: 06/25/2025 Procedure Type: Transthoracic Echocardiogram Location: OP Height: 167.64 cm Weight: 70.31 kg BSA: 1.79 m2 Heart Rate: 81 bpm BP: 130 / 64 mmHg Body Service Team Member: TO Referring MD: Milly CEJA Financial Sales Associate: Babatunde Barrientos MD Symptoms: R07.9 - Chest pain, unspecified Study Quality: Adequate w contrast ECG Rhythm: Sinus Conclusions: - Normal study Findings Procedure Information Contrast agent, definity, is being given per protocol without apparent complications. Left Ventricle Normal left ventricular size, thickness, and systolic function. The visually estimated ejection fraction is between 55-60%. Spectral Doppler is indicative of an impaired relaxation filling pattern. E/E prime ratio is <8, consistent with normal filling pressures. Evidence suggests grade I (mild) diastolic dysfunction. Right Ventricle Normal right ventricular cavity size and systolic function. Atria Both atria are normal in size. There is no evidence of interatrial shunt. Aortic Valve Normal aortic valve structure and function. There is no aortic valve stenosis. There is no aortic valve regurgitation. Mitral Valve Normal mitral valve structure and function. There is trace mitral valve regurgitation. There is no mitral valve stenosis. Pulmonic Valve The pulmonic valve is likely normal. There is trace pulmonic valve regurgitation. Tricuspid Valve Normal tricuspid valve structure. There is no tricuspid valve regurgitation. Tricuspid regurgitation envelope is inadequate for calculation of right ventricular systolic pressure. Normal right atrial pressure. Great Vessels All visible segments of the aorta are normal in size. The pulmonary artery was not well visualized. There is no dilatation of the ascending aorta measuring 3.40 cm. Venous The inferior vena cava is normal in size and collapses greater than 50% with inspiration. Pericardium/Pleural There is no evidence of pericardial effusion. Prior Study Comparison No prior study available for comparison. Measurements 2D Linear Measurements IVSd: 0.86 0.6-0.9/0.6-1.0 cm LVIDd: 4.73 3.9-5.3/4.2-5.9 cm LVIDd Index: 2.64 2.4-3.2/2.2-3.1 cm/m2 LVIDs: 3.33 2.0-3.6 cm LVPWd: 0.90 0.7-1.1 cm LA Diam: 3.10 2.7-3.8/3.0-4.0 cm LAIDs Index: 1.73 1.5-2.3 cm/m2 LV Mass: 174.11 67-162/88-224 g LV Mass Index: 97.27 43-95/49-115 g/m2 LVOT Diam: 2.30 3.0+(-)1.3 cm Mitral Valve MV Pk E: 0.49 MV PK A: 0.59 MV Decel Time: 161.00 E/A: 0.80 E'Lateral: 9.57 E'Medial: 5.11 E/E' Med: 9.60 E/E' Lat: 5.10 PHT: 47.00 MVA PHT: 4.68 Decel Bent: 3.06 Aortic Valve AoV Pk Lenny: 1.29 AoV Mn Lenny: 0.87 AoV VTI: 0.25 AoV Pk Grad: 7.00 Aov Mn Grad: 3.00 RENE Cont.VTI: 3.61 LVOT LVOT Pk Lenny: 1.07 LVOT Mn Lenny: 0.75 LVOT VTI: 0.21 LVOT Pk Grad: 5.00 LVOT Mn Grad: 3.00 LVOT Diam: 2.30 LVOT Area: 4.15 Diastolic Function MV Pk E: 0.49 MV Pk A: 0.59 E/A: 0.80 E'Medial: 5.11 E/E' Med: 9.60 E' Laterial: 9.57 E/E' Lat: 5.10 Right Ventricle TAPSE (mm): 19.50 TVS' Lenny: 12.40 Tricuspid Valve RA Press: 3.00 Great Vessels Aorta Sinus of Valsalva: 3.41 2.0-3.5 cm Ao Asc: 3.40 2.1-3.4 cm Updated in Other Vendor System with Status of Final Babatunde Barrientos MD electronically signed on 06/25/2025 5:29:47 PM with status of Final
--- OUTSIDE RECORDS SUMMARY | 2025-06-25 17:12 | XMS_ITS | Patient Health Record ---
Author Organization Chace Otero MD Address [address] [place] [address] Care Team Providers Care Oracle Programmer Name Role Phone CHACE OTERO Primary Care Provider ALLERGIES No Known Allergies RESULTS Component Value Reference Range Notes Lipid Panel Reviewed date:07/12/2024 04:35:10 PM Interpretation: Performing Lab:[facility], Phone - [phone], Director - Lluvia Notes/Report: Cholesterol, Total 208 100-199 mg/dL Triglycerides 107 0-149 mg/dL HDL Cholesterol 54 >39 mg/dL VLDL Cholesterol [place] 19 5-40 mg/dL LDL Chol Calc ([facility]) 135 0-99 mg/dL LDL Calc Comment: Comp. Metabolic Panel (14) Reviewed date:07/12/2024 04:34:50 PM Interpretation: Performing Lab:[facility], Phone - [phone], Director - Lluvia Notes/Report: Glucose 88 70-99 [...] (SGPT) 6 0-44 IU/L Lipid Panel Reviewed date:11/09/2024 09:32:40 PM Interpretation: Performing [facility], Phone - [phone], Director - Lluvia Notes/Report: Cholesterol, Total 238 100-199 mg/dL Triglycerides 74 0-149 mg/dL HDL Cholesterol 65 >39 mg/dL VLDL Cholesterol [place] 13 5-40 mg/dL LDL Chol Calc ([facility]) 160 0-99 mg/dL LDL Calc Comment: Comp. Metabolic Panel (14) Reviewed date:11/09/2024 09:32:28 PM Interpretation: Performing Lab[facility], Phone - [phone], Director - Lluvia Notes/Report: Glucose 84 70-99 [...] 0-40 IU/L ALT (SGPT) 8 0-44 IU/L REASON FOR REFERRAL [facility] Diagnosis 1 Age-related nuclear cataract, bilateral (H25.13) Referral Organization Chace CEJA Referring Provider First Name CHACE Referring Provider Last Name SHANNA Referring Provider Speciality Internal M edicine Referred Provider Specialty Ophthalmolog y General Notes Paty Dominguez 10:13:38 AM > referral started waiting on auth/notes Angelica saleem Pamela 09/24/2024 10:16:38 AM > referral and auth faxed to [facility] [place] Referral Priority Routine MEDICATIONS Medication SIG (Take, [...] Problem Hyperlipidemia, unspecified (E78.5) Active confirmed Hyperlipidemia (44149418) Problem Parkinson's disease (G20) Active confirmed Parkinson's disease (78684619) S/P DBP PLACEMENT Problem 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) Active confirmed Transient gl obal amnesia (984967265) Problem Obstructive sleep apnea (adult) (pediatric) (G47.33) Active confirmed Obstructive sleep apnea syndrome (disorder) (20667319) Problem Age-related nuclear cataract, bilateral (H25.13) Active confirmed Nuclear senile cataract (442286170) Problem Sialoadenitis, unspecified (K11.20) Active confirmed Sialoadenitis (64142974) Problem Gastro-esophagea l reflux disease without esophagitis (K21.9) Active confirmed Gastro-esophage a l reflux disease without esophagitis (477383673) Problem Osteoarthritis of knee, unspecified (M17.9) Active confirmed Osteoarthritis of knee (345669361) Problem Unsteadiness on feet (R26.81) Active confirmed Abnormal gait (26531847) Problem Repeated falls (R29.6) Active confirmed Recurrent falls (745790690) Problem Benign prostatic hyperplasia without lower urinary tract symptoms (N40.0) Active confirmed Benign pros tatic hypertrophy without outflow obstruction (325395884) Problem Dementia in other diseases classified elsewhere, moderate, without behavioral disturbance, psychotic disturbance, mood disturbance, and anxiety (F02.B0) Active confirmed Moderate dementia (disorder) (450637081353047 ) Problem Parkinson's disease with dyskinesia, with fluctuations (G20.B2) Active confirmed VITAL SIGNS Heart Rate 78 /min 11/04/2024 Blood pressure diastolic 80 mm Hg 11/04/2024 Oximetry 97 % 11/04/2024 Height 65 in 11/04/2024 Blood pressure systolic 130 mm Hg 11/04/2024 Weight 158 lbs 11/04/2024 BMI 26.29 kg/m2 11/04/2024 Encounters Encounter Location Date Provider Diagnosis Chace Otero MD [facility] [address], [place] [id number] 07/12/2024 CHACE O[facility] MD [facility] [address], [place] [id number] 09/11/2024 CHACE OTERO Hyperlipidemia, unspecified E78.5 ; [...] cataract, bilateral H25.13 Chace CEJA [address], [place] [id number] 09/11/2024 CHACE OTERO Encounter for [facility] adult medical examination with abnormal findings Z00.01 Chace CEJA [address], [place] [id number] 11/04/2024 CHACE OTERO Hyperlipidemia, unspecified E78.5 ; Unsteadiness on feet R26.81 ; Parkinson's disease with dyskinesia, with fluctuations G20.B2 ; Dementia in other diseases classified elsewhere, moderate, without behavioral disturbance, psychotic disturbance, mood disturbance, and anxiety F02.B0 and Gastro-esophageal reflux disease without esophagitis K21.9 Chace CEJA [address], [place] [id number] 12/24/2024 CHACE OTERO ASSESSMENTS Encounter Date Diagnosis Assessment Notes Treatment Notes Treatment Clinical Notes Section Notes 11/04/2024 Unsteadiness on feet (ICD-10 - R26.81) AVOID FALLS 11/04/2024 Hyperlipidemia, unspecified (ICD-10 - E78.5) Dietary avoidance discussed 09/11/2024 Encounter for general adult medical examination with abnormal findings (ICD-10 - Z00.01) 09/11/2024 Unsteadiness on feet (ICD-10 - R26.81) 09/11/2024 Hyperlipidemia, unspecified (ICD-10 - E78.5) Nutrition: [...] esophagitis (ICD-10 - K21.9) Continue current therapy 11/04/2024 Gastro-esophageal reflux disease without esophagitis (ICD-10 - K21.9) Continue current therapy 09/11/2024 Encounter for screening for malignant neoplasm of prostate (ICD-10 - Z12.5) 09/11/2024 Age-related nuclear cataract, bilateral (ICD-10 - H25.13) REFER TO OPTHALMOLOGIST --AT [facility],S PLAN OF TREATMENT Pending Test [...] Insured Coverage Start Date Coverage End Date [facility] [address] [address] [place] [address] [id number] Sundar Flores Self - patient is the insured 4 BLUE CROSS / OUT OF STATE [address] [place] [address] [phone] [id number] Sundar Flores Self - patient is the insured 1 MEDICAL (GENERAL) HISTORY Medical History History ICD Code LAST COLONOSCOPY-2012 (ABHAY MILIAN) [id number] LAST PROSTATE EXAM-2021 LAST DEXA SCAN-NEVER LAST [...]
--- OUTSIDE RECORDS SUMMARY | 2025-06-25 17:12 | XMS_ITS | Patient Health Record ---
Author Organization [facility] Address [address] [address] [place] [address] Care Team Providers Care Rn Wellness Name Role Phone Migration, Provider Unavailable Unavailable Reason For Referral No Information Problems Problem Type SNOMED Code ICD Code Onset Dates Problem Status W/U Status Risk Notes Problem Obstructive sleep apnea syndrome (disorder) (97029765) Obstructive sleep apnea (adult) (pediatric) (G47.33) Active confirmed Encounters Encounter Location Date Provider Diagnosis [facility] [address] [address] 08/30/2024 Provider Migration [facility] [address] [address] 08/31/2024 Provider Migration Plan Of Treatment No Information Insurance Providers Payer Name Payer Address Payer Phone Subscriber Number Group Number Insured Name Patient Relationship to Insured Coverage Start Date Coverage End Date [facility] [address] [place] [address] [id number] FIORELLA RITCIHE Self - patient is the insured 4 3
--- OUTSIDE RECORDS SUMMARY | 2025-06-25 17:13 | XMS_ITS | Patient Health Record ---
Author Organization [facility] Address [address] [place] [address] Care Team Providers Care Superintendent Generating Plant Name Role Phone Wojciech Reed MD Primary Care Provider Rekhasteve maxwell FIORELLA Mccann Unavailable Reason For Referral No Information Medications Medication SIG (Take, Route, Frequency, Duration) Notes Start Date End Date Status Sertraline HCl 100 MG Tablet 1 tablet Or ally Once a day Active traZODone HCl 100 MG Tablet 1 tablet at bedtime Orally Once a day Active Aspirin Adult Low Strength 81 MG Tablet Delayed Release 1 tablet Orally Once a day Active Multi Vitamin Daily - Tablet 1 tablet Or ally Once a day Active ProAir HFA 108 (90 Base) MCG/ACT Aerosol Solution 2 puffs as needed Inhalation every 4 hrs Active Fish Oil 1000 MG Capsule 1 capsule Orall y Once a day Active Gabapentin 300 MG Capsule 1 capsule Oral ly Three times a day Active Amitriptyline HCl 100 MG Tablet 1 tablet Orally Once a day Active Meloxicam 7.5 MG Tablet 1 tablet Orally Once a day Active Rytary 61.25-245 MG Capsule Extended Release 1 capsule Orally Three times a day Active Amantadine HCl 100 MG Tablet 1 tablet Or ally Twice a day Active Social History Tobacco Use: Social History Observation Description Date Details (start date - stop date) Never Smoker NA - NA Social History Social History Social Info Question Answer Notes Alcohol Screening: Did you have a drink containing alcohol in the past year? No Points 0 Interpretation Negative Tobacco Use: Are you a: never smoker Additional Findings: Tobacco Non-User Aggressive non-smoker Drug/Alcohol: Social Info Question Answer Notes Alcohol denies alcohol use Tobacco Use: Social Info Question Answer Notes Smoking Are you a: never smoker Problems Problem Type SNOMED Code ICD Code Onset Dates Problem Status W/U Status Risk Notes Problem Sialoadenitis (69420786) Sialoadenitis, unspecified (K11.20) Active confirmed Plan Of Treatment No Information Insurance Providers Payer Name Payer Address Payer Phone Subscriber Number Group Number Insured Name Patient Relationship to Insured Coverage Start Date Coverage End Date DO NOT USE [facility] [address] [place] [address] [id number] FIORELLA RITCHIE Self - patient is the insured Medical (General) History Medical History History ICD Code asthma neuromuscular disorders sleep apnea neurological disorder
--- OUTSIDE RECORDS SUMMARY | 2025-06-25 17:13 | XMS_ITS | Encounter Summary ---
Author Organization [facility] Address [address] [place] [address] Care Team Providers Care Test Lead Application Testing Name Role Phone AutumnKristinaMilly Primary Care Provider Unavailabl e Encounter Details Date Type Department Care Team (Late st Contact Info) Description 02/24/2025 myChart Message [facility] Speech Therapy Department [address] [place] [address] [place], Generic Provider [address] [place] [address] Modified Barrium Swallow Study Social History Tobacco [...] Upcoming Encounters Date Type Department Care Team (Latest Contact Info) Description 07/03/2025 7:05 AM EST Hospital Encounter [facility] Operating Room [address] [place] [address] Franklyn Schulz MD PhD [address] [place] [address] 07/03/2025 7:05 AM EST Anesthesia Event [facility] Operating Room [address] [place] [address] Nikki Hernandez MD [address] [place] [address] Dora Shaw NP [address] [place] [address] 07/03/2025 7:05 AM EST - 07/03/2025 9:05 AM EST Surgery [facility] Operating Room [address] [place] [address] Franklyn Schulz MD PhD [address] [place] [address] REPLACEMENT OF CRANIAL NEUROSTIMULATOR [employer] ADMISSIONS REPRESENTATIVE, 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 RECHARGEABLE PERCEPT [[id number] ([facility] )] 07/27/2025 1:00 PM EST Follow-Up [facility] [address] [place] [address] Franklyn Schulz MD PhD [address] [place] [address] 08/28/2025 10:00 AM EST Office Visit [facility] [address] [place] [address] Shobha Ivey NP [address] [place] [address] 10/22/2025 2:00 PM EDT Procedure visit [facility] [address] [place] [address] Mu Macdonald MD [address] [place] [address] Scheduled Procedures Name Priority Associated Diagnoses Date/Ti me REPLACEMENT OF CRANIAL NEUROSTIMULATOR PUL[employer] ADMISSIONS REPRESENTATIVE, 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 End of battery life of deep brain stimulator 07/03/2025 7:05 AM EST documented as of this encounter Visit Diagnoses Not on filedocumented in this encounter Care Teams Test Lead Application Testing Relationship Specialty Start Date End Date Milly Leyva PCP - General Internal Medicine 02/17/25 documented as of this encounter
--- OUTSIDE RECORDS SUMMARY | 2025-06-25 17:14 | XMS_ITS | Patient Health Record ---
Author Organization [facility] Address [address] [place] [address] Care Team Providers Care Medical Education Coordinator Name Role Phone Birtt (RETIRED) Madan BUCHANAN Primary Care Provide Ricardo [...] Status Risk Notes Problem Colon cancer screening (548552545) Colon cancer screening (V76.51) Active confirmed Problem Current use of aspirin (V58.66) Active confirmed Plan Of Treatment Future Test Test Name Order Date COLONOSCOPY 06/18/2013 Insurance Providers Payer Name Payer Address Payer Phone Subscriber Number Group Number Insured Name Patient Relationship to Insured Coverage Start Date Coverage End Date [facility] [address] [place], [place] [id number] [phone] [id number] FIORELLA Self - patient is the insured Medical (General) History Medical History History ICD Code Parkinson's disease sleep apnea
--- OUTSIDE RECORDS SUMMARY | 2025-06-25 17:14 | XMS_ITS | Clinical Summary ---
Author Organization [facility] Address [address] [place] [address] Care Team Providers Care Block Engraver Name Role Phone Kristina Leyvanne Primary Care Provider Unavailabl e Allergies Active Allergy Reactions Criticality Noted Date Comments Pollen Extracts Nasal congestion 06/24/2025 Medications Inbrija 42 mg Inhale 84 mg via handihaler as needed. 08/07/20 24 Active sertraline (ZOLOFT) 100 mg tablet Take 0.5 tablets (50 mg total) by mouth once a day. 45 tablet 3 02/18/20 25 026 Active carbidopa-levo dopa (Crexont) 52.5-210 mg capsule,IR -extend rel,biphase Take 2 capsules by mouth in the morning, 1 capsule in the early afternoon and 1 capsule in the evening. 120 each 5 5 6:03 PM EST 02/26/20 25 025 Active albuterol (PROAIR HFA,VENTOLIN HFA) 90 mcg inhaler 04/26/20 25 Active rivastigmine (EXELON) 1.5 mg capsule Take 1 capsule (1.5 mg total) by mouth 2 times a day. With breakfast and dinner. 60 capsule 2 5 9:19 PM EDT 06/02/20 25 026 Active ASPIRIN ORAL 81 mg Q AM, 025 Discontinued rivastigmine (EXELON) 4.6 mg/[address] 1 patch on the skin once a day. 30 patch 2 05/29/20 25 025 Discontinued Active Problems Problem Noted Date Diagnosed Date S/P deep brain stimulator placement 05/30/2025 Mild cognitive impairment 05/30/2025 Dysarthria 02/17/2025 Dysphagia, oropharyngeal phase 02/17/2025 Hyperlipidemia 11/27/2017 Transient cerebral ischemia 11/27/2017 Aphasia 11/08/2017 Depression 07/09/2017 Weight loss, unintentional 06/16/2014 Parkinsonism 11/23/2011 Encounters Date Type Department Care Team Description 06/16/2025 myChart Message [facility] [address] [place] [address] Shobha Ivey NP Michael Galat 06/04/2025 7:56 AM EDT - 06/04/2025 11:59 PM EDT Hospital Encounter [facility] X[facility] [address] [place] [address] Mu Macdonald MD Dysphagia, oropharyngeal phase (Primary Dx) Discharge Disposition: Home or Self Care (01) 06/02/2025 Orders Only [facility] [address] [place] [phone] Shobha Ivey NP 06/01/2025 Telephone [facility] [address] [place] [phone] Sandrita Stewart CPhT 05/29/2025 8:00 AM EDT Office Visit [facility] [address] [place] [address] Shobha Ivey NP Parkinson's disease with dyskinesia and fluctuating manifestations (Primary Dx); S/P deep brain stimulator placement; Mild cognitive impairment 05/22/2025 10:00 AM EDT Office Visit [facility] [address] [place] [phone] Shohba Ivey NP Parkinson's disease with dyskinesia and fluctuating manifestations (Primary Dx) 04/10/2025 Telephone [facility] [address] [place] [address] Melodie Baugh RN 04/09/2025 Telephone [facility] [address] [place] [address] Melodie Bauhg RN from Last 3 Months Family History Medical [...] Sign Reading Time Taken Comments Blood Pressure 123/74 05/29/2025 8:07 AM EDT Pulse 82 05/29/2025 8:07 AM EDT Temperature 36.7 C (98 F) 05/29/2025 8:02 AM EDT Respiratory Rate 16 05/29/2025 8:02 AM EDT Oxygen Saturation 96% 05/22/2025 9:29 AM EDT Inhaled Oxygen Concentration - - Weight 71.2 kg (157 lb) 05/29/2025 8:02 AM EDT Height 167.6 cm (5' 6 ) 05/22/2025 9:23 AM EDT Body Mass Index 25.34 05/22/2025 9:23 AM EDT Plan of Treatment Upcoming Encounters Date Type Department Care Team (Latest Contact Info) Description 07/03/2025 7:05 AM EST Hospital Encounter [facility] Operating Room [address] [place] [address] Franklyn Schulz MD PhD [address] [place], [place] [phone] 07/03/2025 7:05 AM EST Anesthesia Event [facility] Operating Room [address] [place] [address] Nikki Hernandez MD [address] [place] [address] Dora Shaw NP [address] [place] [address] 07/03/2025 7:05 AM EST - 07/03/2025 9:05 AM EST Surgery [facility] Operating Room [address] [place] [address] Franklyn Schulz MD PhD [address] [place] [address] REPLACEMENT OF CRANIAL NEUROSTIMULATOR PULSE HEEL CASER, 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 RECHARGEABLE PERCEPT [[id number] ([facility] )] 07/27/2025 1:00 PM EST Follow-Up [facility] [address] [place] [address] Franklyn Schulz MD PhD [address] [place] [address] 08/28/2025 10:00 AM EST Office Visit [facility] [address] [place] [address] Shobha Ivey NP [address] [place] [address] 10/22/2025 2:00 PM EDT Procedure visit [facility] [address] [place] [address] Mu Macdonald MD [address] [place] [address] Scheduled Procedures Name Priority Associated Diagnoses Date/Ti me REPLACEMENT OF CRANIAL NEUROSTIMULATOR PULSE HEEL CASER, 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 End of battery life of deep brain stimulator 07/03/2025 7:05 AM EST Health Maintenance Due Date Last Done Comments Cologuard 1950 Colon Cancer Screening 1950 Colonoscopy 1952 FOBT / Fit Test 1952 Sigmoidoscopy 1952 DTaP,Tdap,and Td Vaccines (1 - Tdap) 1974 Pneumococcal Vaccine: 50+ Ye ars (1 of 1 - PCV) 2002 Zoster Vaccines (1 of 2) 2002 Hepatitis B Vaccines (3 of 3 - Hep B Twinrix 3-dose series) 05/03/2008 12/02/2007, 10/21/2007 Alcohol/Substance Use Screening 08/13/2024 Depression Screening and Follow-Up 08/13/2024 Health Care Proxy Review 08/13/2024 Social Drivers of Health Annual Screening 08/13/2024 Influenza Vaccine (#1) 2025 08/24/2017 COVID-19 Vaccine ( - season) 2025 Fall Risk Screening 06/24/2026 06/24/2025 RSV Vaccine (60+ years old a nd patients) (1 - 1-dose 75+ series) 12/31/2027 Hepatitis C Screening Completed 07/25/2011 Goals Goal Patient Goal Type Associated Problems Recent Progress Patient-Stated? Author Autogenera vivian Goal Care Plan Autogenerated Problem No Romanoff, Linda Procedures * Due to [place] [employer] law, this organization might not be sharing negative HIV tests. Procedure Name Priority Date/Time Associated Diagnosis Comments FL MODIFIED BARIUM SWALLOW Routine 06/04/2025 8:45 AM EDT Dysphagia, oropharyngeal phase HEPATITIS PANEL, ACUTE Routine 07/25/2011 3:12 PM EST from Last 3 Months or Most Recently Relevant to Health Maintenance Results * Due to [place] [employer] law, this organization might not be sharing negative HIV tests. * Fluoroscopy Video Swallow with Speech (06/04/2025 8:45 AM EDT) Anatomical Region Laterality Modality Head and Neck Radio Fluoroscop y 06/04/2025 10:5 9 AM EDT Impressions 06/04/2025 12:25 PM EDT Modified barium swallow as detailed above. A full report will be provided through the department of speech pathology. Manish Garcia, have reviewed the examination and concur with the findings as reported or so edited. Trainee: Fernie Gudino If this radiology report contains a blank impression section, it is an incomplete radiology report. Please contact the interpreting radiologist or applicable radiology division as soon as possible to obtain the completed interpretation. Workstation ID: [id number] Narrative 06/04/2025 12:25 PM EDT EXAMINATION: Barium swallow, swallowing function (cine swallowing function study). INDICATION: Dysphagia. COMPARISON: None available. TECHNIQUE: A modified barium swallow was performed utilizing cinefluoroscopy in conjunction with speech pathology. The patient ingested different consistencies for this study. FINDINGS: IDDSI consistencies used: Level 0 (thin): Used?: Yes. Penetration without aspiration. Level 2 (mildly thick): Used?: Yes. Tolerated without penetration or aspiration. Level 4 (extremely thick): Used?: Yes. Tolerated without penetration or aspiration. Level 7 (solid): Used?: Yes. Tolerated without penetration or aspiration. A radiologist was not present (but was immediately available) for the procedure. Resulting Agency Comment [id number] Procedure Note Manish Mike MD - 06/04/2025 EXAMINATION: Barium swallow, swallowing function (cine swallowing functionstudy). INDICATION: Dysphagia. COMPARISON: None available. TECHNIQUE: A modified barium swallow was performed utilizingcinefluoroscopy in conjunction with speech pathology. The patient ingesteddifferent consistencies for this study. FINDINGS: IDDSI consistencies used: Level 0 (thin): Used?: Yes. Penetration without aspiration. Level 2 (mildly thick): Used?: Yes. Tolerated without penetration oraspiration. Level 4 (extremely thick): Used?: Yes. Tolerated without penetration oraspiration. Level 7 (solid): Used?: Yes. Tolerated without penetration oraspiration. A radiologist was not present (but was immediately available) for theprocedure. IMPRESSION: Modified barium swallow as detailed above. A full report will be provided through the department of speechpathology. Manish Garcia, have reviewed the examination and concur with thefindings as reported or so edited. Trainee: Fernie Gudino If this radiology report contains a blank impression section, it is anincomplete radiology report. Please contact the interpreting radiologistor applicable radiology division as soon as possible to obtain thecompleted interpretation. Workstation ID: [id number] us Mu Macdonald MD IMG FLUOROSCOPY PROCEDURES Fin al Result * Hepatitis Panel, Acute (07/25/2011 3:12 PM EST) Hepatitis A IgM Antibody Negative Negative [facility] Hepatitis B Core IgM Antibody Negative Negative [facility] Hepatitis B Surface Ag Negative Negative [facility] Hepatitis C Antibody <0.02 <1.00 IV [facility] Comment: Negative Not infected with HCV, unless recent infection is suspected or other evidence exists to indicate HCV infection. 07/25/2011 3:12 PM EST 07/25/2011 3:49 PM EST us Patricia Martinez LAB BLOOD ORDERABLES Final Resul t [facility] [address] [place] [address], from Last 3 Months or Most Recently Relevant to Health Maintenance Additional Health Concerns Active Problems Noted Date Diagnosed Date Autogenerated Problem 06/01/2025 Insurance [id number] AARP Care Teams Block Engraver Relationship Specialty Start Date End Date Milly Leyva PCP - General Internal Medicine 02/17/25
== END ==
LOC: HO.CARD 13:48
PROVIDERS: PCP Physician Assistant Medical; Visit Provider Physician Assistant Medical
DX: R07.9 Chest pain, unspecified (principal)
CPT/HCPCS: 93306; Q9957

== ENCOUNTER → 2025-06-25 13:51 | Outpatient (BNV) | payer MEDICARE, SELFPAY | PROVIDERS: PCP Physician Assistant Medical; Visit Provider Internal Medicine Cardiovascular Disease | DX: R07.9 Chest pain, unspecified (principal) | CPT/HCPCS: 93306 ==

== ENCOUNTER 2025-07-30 15:09 | Outpatient (AMB) | payer MEDICARE, SELFPAY ==
--- OUTSIDE RECORDS SUMMARY | 2024-04-21 05:30 | XMS_ITS ---
Author Organization Chace Otero MD Address [address] [facility] [address] Care Team Providers Care Assembler Installer Structures Name Role Phone CHACE OTERO Primary Care Provider REASON FOR VISIT 4 MONTH F/U Encounters Encounter Location Date Provider Diagnosis [facility] [address] [place], [place] [phone] 04/21/2024 CHACE OTERO Plan Of Treatment No Information Progress Notes * Sundar FLORESDOB:1950 (74 yo M)Acc No.[id number]:04/21/2024 Progress Notes Patient: Sundar Pereira Provider: Servando Otero MD :1950 A ge:73 Y S ex:Male Date:04/21/2024 Address:[address] [place], [place] [phone] Subjective: * Chief Complaints: * 4 MONTH F/U * Electronic signature of LUZ MARIA OTERO M.D. on 07/30/2025 at 07:11 PM EST Sign off status: Pending * Provider: Servando Otero MD Date: 0 04/21/2024 Generated for Ajayi theo/Arcelia/eTransmitting on: 1 09/30/2024 07:11 PM EST
--- OUTSIDE RECORDS SUMMARY | 2024-08-30 04:00 | XMS_ITS ---
Author Organization [facility] Address [address] [facility] [address] [place] [address] Care Team Providers Care Real Estate Services Administrator Name Role Phone Migration, Provider Unavailable Unavailable REASON FOR VISIT EMR-Agapito Encounters Encounter Location Date Provider Diagnosis [facility] [address] [address] 08/30/2024 Provider Migration Plan Of Treatment No Information Progress Notes * FIORELLA RITCHIE SDOB:[birth year] (74 yo M)Acc No.[id number]:08/30/2024 Patient: Ash ANTONUlisesFIORELLA :1950 A ge:73 Y S ex:Male Phone: Address:[address] [place] [address], [address] Subjective: * Chief Complaints: * E MR-Agapito * * Date:
--- OUTSIDE RECORDS SUMMARY | 2024-08-31 04:00 | XMS_ITS ---
Author Organization [facility] Address [address] [facility] [address] [place] [address] Care Team Providers Care Senior Technical Specialist Name Role Phone Migration, Provider Unavailable Unavailable REASON FOR VISIT EMR-Agapito Encounters Encounter Location Date Provider Diagnosis [facility] [address] [facility] [address] [place] [address] 08/31/2024 Provider Migration Plan Of Treatment No Information Progress Notes * FIORELLA RITCHIE SDOB:[birth year] (74 yo M)Acc No.[id number]:08/31/2024 Patient: Ash ANTONUlisesFIORELLA :1950 A ge:73 Y S ex:Male Phone: Address:[address] [place] [address], [address] Subjective: * Chief Complaints: * E MR-Agapito * * Date:
--- OUTSIDE RECORDS SUMMARY | 2025-07-27 13:00 | XMS_ITS | Encounter Summary ---
Author Organization [facility] Address [address] [place] [address] Care Team Providers Care Assistant Clinical Nurse Manager Name Role Phone Kristina Leyvanne Primary Care Provider Unavailabl e Reason for Visit * Surgical (Urgent) - Authorized Specialty Diagnoses / Procedures Referred By Godwin amaro Referred To Contact Neurosurgery Diagnoses Parkinson's disease with dyskinesia and fluctuating manifestations Mu Macdonald MD [address] [place] [address] Phone: tel: fax: Referral ID Status Reason Start Date Expiration Date Visits Requested Visits Authorized [id number] Authorized Specialty Services Required 02/17/2025 03/20/2026 6 6 Encounter Details Date Type Department Care Team (Late st Contact Info) Description 07/27/2025 1:00 PM EST Follow-Up [facility] [address] [place] [address] Franklyn Schulz MD PhD [address] [place] [address] [phone] Social History Tobacco Use Types Packs/Day Years [...] AM EDT documented as of this encounter Last Filed Vital Signs Vital Sign Reading Time Taken Comments Blood Pressure 125/66 07/27/2025 1:06 PM EST Pulse 90 07/27/2025 1:06 PM EST Temperature - - Respiratory Rate 18 07/27/2025 1:06 PM EST Oxygen Saturation 98% 07/27/2025 1:06 PM EST Inhaled Oxygen Concentration - - Weight - - Height - - Body Mass Index - - documented in this encounter Plan of Treatment Upcoming Encounters Date Type Department Care Team (Late st Contact Info) Description 08/28/2025 10:00 AM EST Office Visit [facility] [address] [place] [address] Shobha Ivey NP [address] [place] [address] 10/22/2025 2:00 PM EDT Procedure visit [facility] [address] [place] [address] Mu Macdonald MD [address] [place] [address] documented as of this encounter Visit Diagnoses Not on filedocumented in this encounter Care Teams Assistant Clinical Nurse Manager Relationship Specialty Start Date End Date Milly Leyva PCP - General Internal Medicine 02/17/25 documented as of this encounter
--- NOTE | 2025-07-30 15:13 | A.OFFPC_ITS ---
Vital Signs 07/30/25 15:20 Height 5 ft 7 in Weight 146 lb 8 oz BMI 22.9 BP 122/70 Blood Pressure Location Rt brachial Position Sitting Respiration 14 Pulse 87 Pulse Source Pulse Oximeter Temp 98.5 F Temp Source Temporal Artery Scan Pulse Oximetry (%) 98 Oxygen Delivery Method Room Air Intake Visit Reasons: 3 month fu rescheduled Intake Note: Sundar presents in the office today for a 3 month follow up. Load Planner Required: No Allergies Seasonal Allergies Allergy (Verified 04/23/25 15:35) Runny Nose Tobacco use date assessed: 07/30/25 Dental Screening Dental Screen Date: 04/23/25 HPI HPI Comments History of Present Illness Details This is a 74-year-old male with a past medical history of asthma, Parkinson's disease and hyperlipidemia presenting for follow up. Have not received medical records yet. He was diagnosed with Parkinson's disease in 2002. His neurologist is Dr. Patel at [facility]. He is currently treated with carbidopa levodopa, Inbrija, sertraline, and he has a DBS. notes worsening cognitive decline over the past year. Did PT and has exercises. Has cane and walker. Has mobility scooter, but has trouble with controls and coordination with walker and cane are not good. Falls very frequently. Wheel chair requested. We discussed again chronic intermittnet left sided chest pain which improves with exertion and standing. Endorses some acid reflux. Had negative chemical stress test (records have been requested) and echo. He denies shortness of breath, diaphoresis, dizziness, syncope. Last sleep study 25 years ago. Was given CPAP, but it has been years since he had it. Endorses snoring and fatigue. Requests referral to neuro sleep. Reviewed labs with patient. Mild anemia. ROS: Constitutional: +chronic fatigue. Denies fevers, chills, night sweats or unexplained weight loss Eyes: No vision changes Respiratory: No shortness of breath, cough or sputum production. Cardiovascular: Denies palpitations and pedal edema. See HPI Gastrointestinal: No anorexia, nausea, vomiting or diarrhea. No abdominal pain or blood in stool Neurologic: Denies syncope, seizures. see HPI Musculoskeletal: Chronic neck and lower back pain Physical exam: Constitutional: Alert, in no distress. Eyes: Pupils are equal, round and reactive to light. Extraocular muscles intact. Neck: Supple, Full range of motion. No lymphadenopathy. Respiratory: Clear to auscultation. Cardiovascular: S1 S2 regular. No murmurs Genitourinary: No costovertebral angle tenderness. Neurologic: Hypokinetic dysarthria. Extremities: Warm and well perfused. No clubbing, cyanosis or edema. Intact peripheral pulses bilaterally. Psychiatric: Normal mood and affect [facility] Medical History (Updated 07/31/25 @ 19:28 by MARCIAL Schneider) TESSA (obstructive sleep apnea) Chronic fatigue Snoring Frequent falls Hypokinetic Parkinsonian dysphonia Pure hypercholesterolemia Pseudobulbar affect Chest pain Imbalance Incontinence Shingles Parkinson disease Asthma Surgical History (Updated 04/23/25 @ 15:56 by Jayne Sanchez MA) S/P deep brain stimulator placement History of cataract surgery History of cholecystectomy Family History Father Asthma Hypertension Hyperlipemia Cardiovascular disease Brother Asthma Hypertension Hyperlipemia Diabetes Cardiovascular disease Clotting disorder Prostate cancer Substance abuse Sister Asthma Genetic thyroid disorder Mother Hypertension Diabetes Genetic thyroid disorder FHx: mental illness Schizophrenia Maternal Grandmother Hypertension Hyperlipemia Cardiovascular disease Maternal Grandfather Hypertension Hyperlipemia Cardiovascular disease Social History (Updated 07/30/25 @ 15:20 by Jayne Sanchez CMA) Housing: House Alcohol intake: current Patient Tobacco Use Status: Never used Tobacco e-Cigarette/Vaping Use: Never Used Second Hand Smoke Exposure: No service: No Current occupational status: retired Current occupational exposures/hazards: No Cognitive needs: No Hearing needs: No Vision needs: No Questionnaire Thrive Questionnaire Date Thrive assessed: 04/23/25 DEVIKA-7 AMB Questionnaire DEVIKA-7 Date DEVIKA - 7 assessed: 04/23/25 Source: Developed by Drs. Moris Montero, Giulia Ohara, Kam Benitez and colleagues, with an educational derek from [employer]. Physical exam (Primary Care) Vital Signs: Last Vital Signs Temp 98.5 F 07/30/25 15:20 Pulse 87 07/30/25 15:20 Resp 14 07/30/25 15:20 BP 122/70 07/30/25 15:20 Pulse Ox 98 07/30/25 15:20 Oxygen Delivery Method Room Air 07/30/25 15:20 BMI result Body Mass Index 22.9 Tobacco/Smoking Status: Tobacco use Status Tobacco use date assessed 07/30/25 07/30/25 15:23 Patient Tobacco Use Status Never used Tobacco 07/30/25 15:20 e-Cigarette/Vaping Use Never Used 07/30/25 15:20 Thrive Assessment: Date of Thrive Assessment Date Thrive assessed 04/23/25 07/30/25 15:15 Coding Level of Care Code Est Pt Level 4 (01978) Add On Problem Visit Only Diagnoses Mild intermittent asthma without complication J45.20 Asthma complication type: uncomplicated Asthma persistence: intermittent Asthma severity: mild Parkinson disease G20.A1 Dyskinesia presence: with dyskinesia Chest pain, unspecified type R07.9 Chest pain type: unspecified Pure hypercholesterolemia E78.00 Hypokinetic Parkinsonian dysphonia G20.A1; 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 (2) Parkinson disease: Code(s): G20.A1 - Parkinson's disease without dyskinesia, without mention of fluctuations Category: Medical Qualifiers: Dyskinesia presence: with dyskinesia Plan: Continue management per [facility] Neurology. Patient has cane, walker and scooter, but due to lack of coordination and fine motor skills they are not optimal for him, and he falls frequently. Wheelchair is medically necessary. (3) Chest pain: Code(s): R07.9 - Chest pain, unspecified Category: Medical Qualifiers: Chest pain type: unspecified Qualified Code(s): R07.9 - Chest pain, unspecified Plan: EKG 05/22/25 no acute ischemic changes. Echo report received. Stress test requested, reportedly negative. Does not sound cardiac since he states pain goes away after he continues to walk and move. Trial of omprazole. (4) Pure hypercholesterolemia: Code(s): E78.00 - Pure hypercholesterolemia, unspecified Category: Medical Plan: Check fasting lipid profile. He is not on medication for this. Evaluate need for statin based on lab results. Recommended Mediterranean diet. (5) Hypokinetic Parkinsonian dysphonia: Code(s): G20.A1 - Parkinson's disease without dyskinesia, without mention of fluctuations; R49.0 - Dysphonia Category: Medical (6) TESSA (obstructive sleep apnea): Code(s): G47.33 - Obstructive sleep apnea (adult) (pediatric) Category: Medical Plan: Ordered sleep study and sleep medicine consult. Plan Follow up in 3 months. Orders: Orders Ferritin 07/30/25 D64.9 - Anemia, unspecified IRON PROFILE 07/30/25 D64.9 - Anemia, unspecified Referrals Sleep Medicine Referral R06.83 - Snoring, R53.82 - Chronic fatigue, unspecified Cologuard Test Z12.11 - Encounter for screening for malignant neoplasm of colon Medications: New chair, wheel (Wheel chair) As directed 1 ea 0RF G20.A1 - Parkinson's disease without dyskinesia, without mention of fluctuations, R29.6 - Repeated falls omeprazole 20 mg PO DAILY 90 caps 0RF
[2025-07-30 15:20] VITALS: BP 122/70; PULSE 87; RESP 14; TEMP 36.9; O2SAT 98; BMI 22.9
--- OUTSIDE RECORDS SUMMARY | 2025-07-30 19:10 | XMS_ITS | Encounter Summary ---
Author Organization [facility] Address [address] [place] [address] Care Team Providers Care Predatory Animal Hunter Name Role Phone Milly Leyva Primary Care Provider Unavailabl e Reason for Visit * Reason Comments Med Refill Encounter Details Date Type Department Care Team (Late st Contact Info) Description 07/30/2025 Refill [facility] [address] [place] [phone] Blueprint Maker: Mu Orellana MD [address] [place] [address] Social History Tobacco Use Types Packs/Day Years [...] Description 08/28/2025 10:00 AM EST Office Visit [facility] [address] [place], [place] [phone] Shobha Ivey NP [address] [place] [address] 10/22/2025 2:00 PM EDT Procedure visit [facility] [address] [place] [address] Mu Macdonald MD [address] [place], [place] [phone] documented as of this encounter Visit Diagnoses Not on filedocumented in this encounter Care Teams Predatory Animal Hunter Relationship Specialty Start Date End Date Milly Leyva PCP - General Internal Medicine 02/17/25 documented as of this encounter
--- OUTSIDE RECORDS SUMMARY | 2025-07-30 19:10 | XMS_ITS | Patient Health Record ---
Author Organization [facility] Address [address] [facility] [address] [place] [address] Care Team Providers Care Instrumentation And Controls Designer Name Role Phone Migration, Provider Unavailable Unavailable Reason For Referral No Information Problems Problem Type SNOMED Code ICD Code Onset Dates Problem Status W/U Status Risk Notes Problem Obstructive sleep apnea syndrome (disorder) (62938354) Obstructive sleep apnea (adult) (pediatric) (G47.33) Active confirmed Encounters Encounter Location Date Provider Diagnosis [facility] [address] [address] 08/30/2024 Provider Migration [facility] [address] [phone] 08/31/2024 Provider Migration Plan Of Treatment No Information Insurance Providers Payer Name Payer Address Payer Phone Subscriber Number Group Number Insured Name Patient Relationship to Insured Coverage Start Date Coverage End Date [employer] [address] [place] [address] [id number] FIORELLA RITCHIE Self - patient is the insured 4 3
--- OUTSIDE RECORDS SUMMARY | 2025-07-30 19:11 | XMS_ITS | Patient Health Record ---
Author Organization [facility] Address [address] [place] [address] Care Team Providers Care Hammer Mill Operator Name Role Phone Britt (RETIRED) Madan BUCHANAN [...] Active Vitamin D 1000iu prn Act brent[place] Social History Social History Additional Details Category Social Info Options Details Miscellaneous: Marital status: Occupation: retired Problems Problem Type SNOMED Code ICD Code Onset Dates Problem Status W/U Status Risk Notes Problem Colon cancer screening (184356485) Colon cancer screening (V76.51) Active confirmed Problem Current use of aspirin (V58.66) Active confirmed Plan Of Treatment Future Test Test Name Order Date COLONOSCOPY 06/18/2013 Insurance Providers Payer Name Payer Address Payer Phone Subscriber Number Group Number Insured Name Patient Relationship to Insured Coverage Start Date Coverage End Date [facility] [address] [place], [place] [id number] [phone] [id number] FIORELLA RITCHIE Self - patient is the insured Medical (General) History Medical History History ICD Code Parkinson's disease sleep apnea
--- OUTSIDE RECORDS SUMMARY | 2025-07-30 19:11 | XMS_ITS | Patient Health Record ---
Author Organization [facility] Address [address] [place] [address] Care Team Providers Care Senior Brand Manager Name Role Phone Wojciech Reed MD Primary [...] Status W/U Status Risk Notes Problem Sialoadenitis ([id number]) Sialoadenitis, unspecified (K11.20) Active confirmed Plan Of Treatment No Information Insurance Providers Payer Name Payer Address Payer Phone Subscriber Number Group Number Insured Name Patient Relationship to Insured Coverage Start Date Coverage End Date DO NOT USE [facility] [address] [place] [address] [id number] FIORELLA RITCHIE Self - patient is the insured Medical (General) History Medical History History ICD Code asthma neuromuscular disorders sleep apnea neurological disorder
--- OUTSIDE RECORDS SUMMARY | 2025-07-30 19:11 | XMS_ITS | Clinical Summary ---
Author Organization [facility] Address [address] [place] [address] Care Team Providers Care Service Person Name Role Phone Autumn, Milly Primary Care Provider Unavailabl e Allergies Active Allergy Reactions Criticality Noted Date Comments Pollen Extracts Nasal congestion 06/24/2025 Medications Inbrija 42 mg Inhale 84 mg via handihaler as needed. 4 Active sertraline (ZOLOFT) 100 mg tablet Take 0.5 tablets (50 mg total) by mouth once a day. 45 tablet 3 5 02/18/20 26 Active carbidopa-levod opa (Crexont) 52.5-210 mg capsule,IR -extend rel,biphase Take 2 capsules by mouth in the morning, 1 capsule in the early afternoon and 1 capsule in the evening. 120 each 5 07/12/2025 3:17 PM EST 5 08/25/19 26 Active albuterol (PROAIR HFA,VENTOLIN HFA) 90 mcg inhaler 5 Active rivastigmine (EXELON) 1.5 mg capsule Take 1 capsule (1.5 mg total) by mouth 2 times a day. With breakfast and dinner. 60 capsule 2 07/10/2025 9:33 AM EST 5 08/31/19 26 Active clindamycin (CLEOCIN) 150 mg capsule Take 2 capsules (300 mg total) by mouth 3 times a day for 5 days. Follow dose with water, juice, or milk. 30 capsule 07/03/2025 2:46 PM EST 5 07/08/20 25 Active Problems Problem Noted Date Diagnosed Date S/P deep brain stimulator placement 05/30/2025 Mild cognitive impairment 05/30/2025 Dysarthria 02/17/2025 Dysphagia, oropharyngeal phase 02/17/2025 Hyperlipidemia 11/27/2017 Transient cerebral ischemia 11/27/2017 Aphasia 11/08/2017 Depression 07/09/2017 Weight loss, unintentional 06/16/2014 Parkinsonism 11/23/2011 Encounters Date Type Department Care Team Description 07/30/2025 Refill [facility] [address] [place] [id number] Director Internal Audit: Mu Orellana MD 07/27/2025 1:00 PM EST Follow-Up [facility] [address] [place] [address] Franklyn Schulz MD PhD 07/24/2025 Documentation [facility] [address] [address] 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 Effective 07/24/25 - 08/12/26. 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, 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 RECHARGEABLE PERCEPT [00264 (CPT )] 07/03/2025 10:40 AM EST - 07/03/2025 3:35 PM EST Hospital Encounter [facility] [address] [place] [address] Franklyn Schulz MD PhD Discharge Disposition: Home or Self Care () 07/01/2025 Orders Only [facility] [address] [place] [address] Milly Leyva 06/16/2025 myChart Message [facility] [address] [place] [address] Shobha Ivey NP Michael Galat 06/04/2025 7:56 AM EDT - 06/04/2025 11:59 PM EDT Hospital Encounter [facility] Xray [address] [place] [address] Mu Macdonald MD Dysphagia, oropharyngeal phase (Primary Dx) Discharge Disposition: Home or Self Care () 06/02/2025 Orders Only [facility] [address] [place] [phone] Shobha Ivey NP 06/01/2025 Telephone [facility] [address] [place] [phone] Sandrita Stewart CPhT 05/29/2025 8:00 AM EDT Office Visit [facility] [address] [place] [phone] Shobha Ivey NP Parkinson's disease with dyskinesia and fluctuating manifestations (Primary Dx); S/P deep brain stimulator placement; Mild cognitive impairment 05/22/2025 10:00 AM EDT Office Visit [facility] [address] [place] [phone] Shobha Ivey NP Parkinson's disease with dyskinesia and fluctuating manifestations (Primary Dx) from Last 3 Months Family History Medical [...] Pulse 90 07/27/2025 1:06 PM EST Temperature 36.6 C (97.9 F) 07/03/2025 2:22 PM EST Respiratory Rate 18 07/27/2025 1:06 PM EST Oxygen Saturation 98% 07/27/2025 1:06 PM EST Inhaled Oxygen Concentration - - Weight 71.2 kg (157 lb) 07/03/2025 10:59 AM EST Height 167.6 cm (5' 6 ) 07/03/2025 10:59 AM EST Body Mass Index 25.34 07/03/2025 10:59 AM EST Plan of Treatment Upcoming Encounters Date Type Department Care Team (Late st Contact Info) Description 08/28/2025 10:00 AM EST Office Visit [facility] [address] [place] [address] Shobha Ivey NP [address] [place] [phone] 10/22/2025 2:00 PM EDT Procedure visit [facility] [address] [place] [address] Mu Macdonald MD [address] [place] [address] Health Maintenance Due Date Last Done Comments [...] Influenza Vaccine (#1) 2025 08/24/2017 COVID-19 Vaccine (1 - season) 2025 Fall Risk Screening 07/27/2026 07/27/2025 RSV Vaccine (60+ years old a nd patients) (1 - 1-dose 75+ series) 12/31/2027 Hepatitis C Screening Completed 07/25/2011 Medical Devices Implanted Type Area Photographic Double Device Identifier Shelf Expiration Date Model / Serial / Lot Stimulator Deep Brain Rechargeable Percept - [id number] - [id number] Implanted:Qty: 1 on 07/03/2025 by Franklyn Schulz MD PhD at [facility] Implant Right: Chest Medtronic 05/10/2027 [id number] / [id number] / Procedures * Due to [place] state law, this organization might not be sharing negative HIV tests. Procedure Name Priority Date/Time Associated Diagnosis Comments FL IMP STIM,CRANIAL,SUBQ, >1 ARRAY 07/03/2025 12:54 PM EST End of battery life of deep brain stimulator Special Needs Medtronic RepresentativeRep aware hecked by Jazlyn Rios LIGHT BLUE TOP Routine 07/03/2025 11:26 AM EST EXTRA TUBES Routine 07/03/2025 11:26 AM EST PTT Routine 07/03/2025 11:07 AM EST COMPREHENSIVE METABOLIC PANEL Routine 07/02/2025 1:24 PM EST End of battery life of deep brain stimulator CBC AUTO DIFFERENTIAL Routine 07/02/2025 1:24 PM EST End of battery life of deep brain stimulator TYPE AND SCREEN Routine 07/02/2025 1:24 PM EST End of battery life of deep brain stimulator PROTIME-INR Routine 07/02/2025 1:24 PM EST End of battery life of deep brain stimulator EXTERNAL ECHOCARDIOGRAM, OUTSIDE RESULTS Routine 06/25/2025 11:28 AM EST LAB - SCANNED 06/24/2025 [place] MODIFIED BARIUM SWALLOW Routine 06/04/2025 8:45 AM EDT Dysphagia, oropharyngeal phase HEPATITIS PANEL, ACUTE Routine 07/25/2011 3:12 PM EST from Last 3 Months or Most Recently Relevant to Health Maintenance Results * Due to [place] state law, this organization might not be sharing negative HIV tests. * Light Blue Top (07/03/2025 11:26 AM EST) Extra Tube Hold for add-ons. 07/03/2025 4:05 PM EST [facility] Comment:Auto resulted. Blood Structure of peripheral vein / Unknown 07/03/2025 11:26 AM EST 07/03/2025 11:26 AM EST us Franklyn Schulz MD PhD LAB BLOOD ORDERABLES Final Result [facility] [address] [place] [address], * PTT (07/03/2025 11:07 AM EST) aPTT 31.9 25.1 - 36.5 Seconds 07/03/2025 11:51 AM EST [facility] Comment:Current PTT reagent is not sensitive to detect all Lupus Anticoagulant (LA) Inhibitor Cases. If a LA is suspected, please order a Lupus Anticoagulant Test. Blood Structure of peripheral vein / Unknown Venipuncture / Unknown 07/03/2025 11:07 AM EST 07/03/2025 11:25 AM EST us Franklyn Schulz MD PhD LAB BLOOD ORDERABLES Final Result [facility] [address] [place] [address], * CBC Auto Differential (07/02/2025 1:24 PM EST) WBC 6.4 3.8 - 10.8 10*3/uL 07/02/2025 4:08 PM EST [facility] RBC 4.49 4.20 - 5.80 10*6/uL 07/02/2025 4:08 PM EST [facility] Hemoglobin 13.8 13.2 - 17.1 g/dL 07/02/2025 4:08 PM EST [facility] Hematocrit 41.7 38.5 - 50.0 % 07/02/2025 4:08 PM EST [facility] MCV 92.9 80.0 - 100.0 fL 07/02/2025 4:08 PM EST [facility] MCH 30.7 27.0 - 33.0 pg 07/02/2025 4:08 PM EST [facility] MCHC 33.1 32.0 - 36.0 g/dL 07/02/2025 4:08 PM EST [facility] RDW 11.9 11.0 - 15.0 % 07/02/2025 4:08 PM EST [facility] Platelets 263 140 - 400 10*3/uL 07/02/2025 4:08 PM EST [facility] MPV 10.1 7.5 - 12.5 fL 07/02/2025 4:08 PM EST [facility] Neutrophil % 75.5 % 07/02/2025 4:08 PM EST [facility] Immature Grans % 0.2 0.0 - 0.9 % 07/02/2025 4:08 PM EST [facility] Lymphocyte % 13.8 % 07/02/2025 4:08 PM EST [facility] Monocyte % 9.6 % 07/02/2025 4:08 PM EST [facility] Eosinophil % 0.3 % 07/02/2025 4:08 PM EST [facility] Basophil % 0.6 % 07/02/2025 4:08 PM EST [facility] Neutrophil # 4.82 1.50 - 7.80 10*3/uL 07/02/2025 4:08 PM EST [facility] Immature Grans # <0.03 <=0.03 10*3/uL 07/02/2025 4:08 PM EST [facility] Lymphocyte # 0.90 0.85 - 3.90 10*3/uL 07/02/2025 4:08 PM EST [facility] Monocyte # 0.60 0.20 - 0.95 10*3/uL 07/02/2025 4:08 PM EST [facility] Eosinophil # <0.03 0.02 - 0.50 10*3/uL 07/02/2025 4:08 PM EST [facility] Basophil # <0.03 0.00 - 0.20 10*3/uL 07/02/2025 4:08 PM EST [facility] nRBC % 0.0 /100 WBCs 07/02/2025 4:08 PM EST [facility] nRBC # <0.01 <0.01 10*3/uL 07/02/2025 4:08 PM EST [facility] Blood Structure of peripheral vein / Unknown Venipuncture / Unknown 07/02/2025 1:24 PM EST 07/02/2025 3:54 PM EST Franklyn Schulz MD PhD LAB BLOOD ORDERABLES Final Result Performing Organization Address [facility] de Phone Number [facility] [address] [place] [address], * Protime-INR (07/02/2025 1:24 PM EST) PT 11.8 10.3 - 13.0 Seconds 07/02/2025 4:12 PM EST [facility] INR 1.0 0.9 - 1.1 07/02/2025 4:12 PM EST [facility] Comment:The optimal therapeu tic INR range for patients treated with Vitamin K antagonists (VKAS, e.g., Warfarin) is 2.0 to 3.5. Discuss the desired range with your doctor/care team. Blood Structure of peripheral vein / Unknown Venipuncture / Unknown 07/02/2025 1:24 PM EST 07/02/2025 3:54 PM EST Franklyn Schulz MD PhD LAB BLOOD ORDERABLES Final Result Performing Organization Address [facility] de Phone Number [facility] [address] [place] [address], * Type and Screen (07/02/2025 1:24 PM EST) ABO Blood Type O 07/02/2025 8:39 PM EST [facility] RH Type Positive 07/02/2025 8:39 PM EST [facility] Expiration Date/Time 2025-07-05 23:59 07/02/2025 8:39 PM EST [facility] Antibody Screen Negative 07/02/2025 8:39 PM EST [facility] Blood Structure of peripheral vein / Unknown Venipuncture / Unknown 07/02/2025 1:24 PM EST 07/02/2025 4:02 PM EST us Franklyn Schulz MD PhD LAB BLOOD BANK TEST ORDERABLES Final Result [facility] [address] [place] [address], * (ABNORMAL) Comprehensive Metabolic Panel (07/02/2025 1:24 PM EST) NA 138 135 - 145 mmol/L 07/02/2025 4:29 PM EST [facility] K 3.9 3.5 - 5.3 mmol/L 07/02/2025 4:29 PM EST [facility] Cl 100 97 - 110 mmol/L 07/02/2025 4:29 PM EST [facility] CO2 27 22 - 32 mmol/L 07/02/2025 4:29 PM EST [facility] Anion Gap 11 5 - 15 07/02/2025 4:29 PM EST [facility] Glucose 94 65 - 99 mg/dL 07/02/2025 4:29 PM EST [facility] Creatinine 0.76 0.60 - 1.30 mg/dL 07/02/2025 4:29 PM EST [facility] Calcium 9.5 8.6 - 10.5 mg/dL 07/02/2025 4:29 PM EST [facility] Total Protein 7.4 6.0 - 8.0 g/dL 07/02/2025 4:29 PM EST [facility] Albumin 4.6 3.5 - 5.2 g/dL 07/02/2025 4:29 PM EST [facility] Bilirubin, Total 0.7 0.2 - 1.2 mg/dL 07/02/2025 4:29 PM EST [facility] Alkaline Phosphatase 64 35 - 129 U/L 07/02/2025 4:29 PM EST [facility] AST 25 10 - 40 U/L 07/02/2025 4:29 PM EST [facility] ALT 7(L) 10 - 40 U/L 07/02/2025 4:29 PM EST [facility] BUN 14 7 - 23 mg/dL 07/02/2025 4:29 PM EST [facility] eGFR >90 >=60 mL/min/1. 73m2 07/02/2025 4:29 PM EST [facility] Comment:The estimated glomer ular filtration rate (eGFR) is calculated using a new formula developed by the NKF-ASN task force to eliminate race-based correction factors. The new formula uses serum/plasma creatinine, age, and gender to determine eGFR. A value below 60mls/min might indicate kidney disease and will be flagged. For additional information, see Lala et al, Am J Kidney Dis. 2021;79(2):268- 288, A Unifying Approach for GFR estimation: Recommendations of the NKF-ASN Task Force on Reassessing the Inclusion of Race in Diagnosing Kidney Disease . Globulin, Total 2.8 2.1 - 4.2 g/dL 07/02/2025 4:29 PM EST [facility] A/G Ratio 1.6 1.5 - 3.0 07/02/2025 4:29 PM EST [facility] Blood Structure of peripheral vein / Unknown Venipuncture / Unknown 07/02/2025 1:24 PM EST 07/02/2025 3:54 PM EST us Franklyn Schulz MD PhD LAB BLOOD ORDERABLES Final Result [facility] [address] [place] [address], * Echocardiogram, Outside Result (06/25/2025 11:28 AM EST) us Milly Leyva AMB EXTERNAL RESULT PROCEDURES F inal Result * LAB - SCANNED (06/24/2025) us On[facility] LAB HISTORICAL RESULTS Final Result * Fluoroscopy Video Swallow with Speech (06/04/2025 8:45 AM EDT) Anatomical Region Laterality Modality Head and Neck Radio Fluoroscop y 06/04/2025 10:5 9 AM EDT Impressions 06/04/2025 12:25 PM EDT Modified barium swallow as detailed above. A full report will be provided through the department of speech pathology. I, Manish Mike, have reviewed the examination and concur with the findings as reported or so edited. Trainee: Fernie Gudino If this radiology report contains a blank impression section, it is an incomplete radiology report. Please contact the interpreting radiologist or applicable radiology division as soon as possible to obtain the completed interpretation. Workstation ID: [id number] Narrative 06/04/2025 12:25 PM EDT EXAMINATION: Barium [...] available) for the procedure. Resulting Agency Comment [id number] Procedure Note Manish Mike MD - 06/04/2025 [...] be provided through the department of speechpathology. I, Manish Mike, have reviewed the examination and concur with thefindings as reported or so edited. Trainee: Fernie Gudino If this radiology report contains a blank impression section, it is anincomplete radiology report. Please contact the interpreting radiologistor applicable radiology division as soon as possible to obtain thecompleted interpretation. Workstation ID: [id number] Mu Macdonald MD IMG FLUOROSCOPY PROCEDURES Fin al Result * Hepatitis Panel, Acute (07/25/2011 3:12 PM EST) Hepatitis A IgM Antibody Negative Negative [facility] Hepatitis B Core IgM Antibody Negative Negative [facility] Hepatitis B Surface Ag Negative Negative [facility] Hepatitis C Antibody <0.02 <1.00 IV [facility] Comment: Negative Not infected with HCV, unless recent infection is suspected or other evidence exists to indicate HCV infection. 07/25/2011 3:12 PM EST 07/25/2011 3:49 PM EST Patricia Martinez LAB BLOOD ORDERABLES Final Resul t [facility] [address] [place] [id number], from Last 3 Months or Most Recently Relevant to Health Maintenance Insurance [facility] [employer] [place] [id number] Advance Directives * Full Code (Latest Code Status on File) Date Activated Date Inactivated Comments 07/03/2025 10:57 AM 07/03/2025 5:35 PM Healthcare Agents on File Name Relationship Healthcare Agent [facility] Communication Shobha Flores Spouse Health Care Agent [email or web address] Care Teams Service Person Relationship Specialty Start Date End Date Milly Leyva PCP - General Internal Medicine 02/17/25
--- OUTSIDE RECORDS SUMMARY | 2025-07-30 19:11 | XMS_ITS | Encounter Summary ---
Author Organization [facility] Address [address] [place] [address] Care Team Providers Care Chief Knowledge Officer Name Role Phone AutumnMilly bennett Primary Care Provider Unavailabl e Encounter Details Date Type Department Care Team (Late Contact Info) Description 02/24/2025 myChart Message [facility] Speech Therapy Department [address] [place] [address] [place], Generic Provider [address] [place] [address] Modified Barrium Swallow Study Social History Tobacco [...] Description 08/28/2025 10:00 AM EST Office Visit [facility] [address] [place] [address] Shobha Ivey NP [address] [place] [address] 10/22/2025 2:00 PM EDT Procedure visit [facility] [address] [place] [address] Mu Macdonald MD [address] [place] [phone] documented as of this encounter Visit Diagnoses Not on filedocumented in this encounter Care Teams Chief Knowledge Officer Relationship Specialty Start Date End Date Milly Leyva PCP - General Internal Medicine 02/17/25 documented as of this encounter
--- OUTSIDE RECORDS SUMMARY | 2025-07-30 19:11 | XMS_ITS | Patient Health Record ---
Author Organization Chace Otero MD Address [address] [place] [address] Care Team Providers Care Labor Operator Name Role Phone CHACE OTERO Primary Care Provider [phone] Allergies No Known Allergies Results Component Value Reference Range Flag Notes Lipid Panel Reviewed date:11/09/2024 09:32:40 PM Interpretation: Performing Lab:[facility], [facility] [facility], Phone - [phone], Director - Lluvia Notes/Report: Cholesterol, Total 238 100-199 mg/dL H Triglycerides 74 0-149 mg/dL HDL Cholesterol 65 >39 mg/dL VLDL Cholesterol [place] 13 5-40 mg/dL LDL Chol Calc (NIH) 160 0-99 mg/dL H Comp. Metabolic Panel (14) Reviewed date:11/09/2024 09:32:28 PM Interpretation: Performing Lab:[facility], [facility] [address] [facility], Phone - [phone], Director - Lluvia Notes/Report: Glucose 84 70-99 [...] 0-40 IU/L ALT (SGPT) 8 0-44 IU/L Reason For Referral Reason REFER TO [facility] Diagnosis 1 Age-related nuclear cataract, bilateral (H25.13) Referral Organization [facility] Referring Provider First Name CHACE Referring Provider Last Name SHANNA Referring Provider Speciality Internal M edicine Referred Provider Specialty Ophthalmolog y General Notes Paty Dominguez 10:13:38 AM > referral started waiting on auth/notes Angelica saleem Pamela 09/24/2024 10:16:38 AM > referral and auth faxed to [facility] Referral Priority Routine Medications Medication SIG (Take, Route, Frequency, Duration) Notes Start Date End Date Status Azilect 1 MG Tablet 1 tablet Orally Once a day; Duration: 30 days Not-Taking/PRN traZODone HCl 100 MG Tablet 1/2 TABLET Orally Once a day Active Sertraline HCl 100 MG Tablet 1/2 tablet Orally Once a day Active Memantine HCl 5 MG Tablet 1 tablet Orally Once a day; Duration: 30 day(s) 04/09/2024 Active Tobramycin-dexAMETHason e 0.3-0.05 % Suspension drops Ophthalmic 2 drops Three times a day; Duration: 7 day(s) 06/11/2024 Active Pantoprazole Sodium 20 MG Tablet Delayed Release TAKE 1 TABLET BY MOUTH DAILY 0.5 TO 1 HOUR BEFORE BREAKFAST; Duration: 90 Active Fish Oil 1000 MG Capsule 1 capsule Orally Once a day Not-Taking/PRN Aspirin 325 MG Tablet 1 tablet Orally On ce a day; Duration: 30 days Not-Taking/PRN Multi Vitamin Daily - Tablet 1 tablet Orally Once a day Not-Taking/PRN Inbrija 42 MG Capsule 2 capsules as need ed Inhalation Five times a day Active Multivitamin - Tablet 1 tablet Orally On ce a day; Duration: 30 day(s) Active Aricept 10 MG Tablet 1 tablet at bedtime Orally Once a day; Duration: 30 day(s) Active Carbidopa-Levodopa 25-100 MG Tablet 1 1/2 tablets as needed Orally Three times a day Active Social History Tobacco Use: Social History Observation Description Date Details (start date - stop date) Former Smoker NA - NA Social History Drugs/Alcohol: Social Info Question Answer Notes Drugs Have you used drugs other than those for medical reasons in the past 12 months? No Tobacco Use: Social Info Question Answer Notes Tobacco Use/Smoking Are you a former smoker How long has it been since you last smoked? > 10 years Additional Findings: Tobacco Non-User Current no n-smoker Tobacco use other than smoking: Are you an other tobac co user? No Section Notes: Patient enjoys photography [...] reading Patient enjoys photography a nd reading Problems Problem Type SNOMED Code ICD Code Onset Dates Problem Status W/U Status Risk Notes Problem Hyperlipidemia (45149265) Hyperlipidemia, unspecified (E78.5) Active confirmed Problem Parkinson's disease (98520240) Parkinson's disease (G20) Active confirmed S/P DBP PLACEMENT Problem Transient global amnesia (837218429) 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) Active confirmed Problem Obstructive sleep apnea syndrome (disorder) (55007598) Obstructive sleep apnea (adult) (pediatric) (G47.33) Active confirmed Problem Nuclear senile cataract (123903212) Age-related nuclear cataract, bilateral (H25.13) Active confirmed Problem Sialoadenitis (31563559) Sialoadenitis, unspecified (K11.20) Active confirmed Problem Gastro-esophagea l reflux disease without esophagitis (750083787) Gastro-esophagea l reflux disease without esophagitis (K21.9) Active confirmed Problem Osteoarthritis of knee (440965361) Osteoarthritis of knee, unspecified (M17.9) Active confirmed Problem Abnormal gait (01020835) Unsteadiness on feet (R26.81) Active confirmed Problem Recurrent falls (744226641) Repeated falls (R29.6) Active confirmed Problem Benign prostatic hypertrophy without outflow obstruction (443812369) Benign prostatic hyperplasia without lower urinary tract symptoms (N40.0) Active confirmed Problem Moderate dementia (disorder) (669071172132865 ) Dementia in other diseases classified elsewhere, moderate, without behavioral disturbance, psychotic disturbance, mood disturbance, and anxiety (F02.B0) Active confirmed Problem Parkinson's disease with dyskinesia, with fluctuations (G20.B2) Active confirmed Vital Signs Heart Rate 78 /min 11/04/2024 Oximetry 97 % 11/04/2024 Blood pressure diastolic 80 mm Hg 11/04/2024 Height 65 in 11/04/2024 Blood pressure systolic 130 mm Hg 11/04/2024 Weight 158 lbs 11/04/2024 BMI 26.29 kg/m2 11/04/2024 Encounters Encounter Location Date Provider Diagnosis [facility] [address], [place] [id number] 09/11/2024 CHACE OTERO Hyperlipidemia, unspecified E78.5 ; [...] cataract, bilateral H25.13 [facility] [address], [place] [id number] 09/11/2024 CHACE OTERO Encounter for genera adult medical examination with abnormal findings Z00.01 [facility] [address], [place] [id number] 11/04/2024 CHACE OTERO Hyperlipidemia, unspecified E78.5 ; Unsteadiness on feet R26.81 ; Parkinson's disease with dyskinesia, with fluctuations G20.B2 ; Dementia in other diseases classified elsewhere, moderate, without behavioral disturbance, psychotic disturbance, mood disturbance, and anxiety F02.B0 and Gastro-esophageal reflux disease without esophagitis K21.9 Assessments Encounter Date Diagnosis (ICD Code) Assessment Notes Treatment Notes Treatment Clinical Notes Section Notes 11/04/2024 Hyperlipidemia, unspecified (ICD-10 - E78.5) Dietary avoidance discussed 11/04/2024 Unsteadiness on feet (ICD-10 - R26.81) AVOID FALLS 09/11/2024 Encounter for general adult medical examination with abnormal findings (ICD-10 - Z00.01) 09/11/2024 Hyperlipidemia, unspecified (ICD-10 - E78.5) Nutrition: [...] (ICD-10 - F02.B0) Continue current therapy 09/11/2024 Dementia in other [...] (ICD-10 - H25.13) REFER TO OPTHALMOLOGIST --AT [facility], Plan Of Treatment Pending Test Test Name Order Date X [...] Insured Coverage Start Date Coverage End Date [facility] [address] [address] [place] [address] [id number] Sundar Flores Self - patient is the insured 4 [employer] / OUT OF [employer] [address] [place] [address] [phone] [id number] Sundar Flores Self - patient is the insured 1 Medical (General) History Medical History History ICD Code LAST COLONOSCOPY-2012 (ABHAY MILIAN) [id number] LAST PROSTATE EXAM-2021 LAST DEXA SCAN-NEVER LAST [...] Date(Month/Year) altered mental status possible TIA 10/30 16 DBS phase leads placed into left side of brain (1) 08/2017 DBS phase neurotransmitter i nserted in right upper chest; leads connected (2) 09/2017 CHOLESYSTECTOMY 06/2019
== END 2025-07-30 15:55 | disposition home or self-care (01) ==
LOC: HO.HMCFM 15:09
PROVIDERS: PCP Physician Assistant Medical; Visit Provider Physician Assistant Medical
DX: J45.20 Mild intermittent asthma, uncomplicated (principal); G20.A1 Parkinson's disease without dyskinesia, without mention of fluctuations; R07.9 Chest pain, unspecified; E78.00 Pure hypercholesterolemia, unspecified; R49.0 Dysphonia; G47.33 Obstructive sleep apnea (adult) (pediatric)

== ENCOUNTER → 2025-07-30 15:09 | Outpatient (BNVA) | payer MEDICARE, SELFPAY | PROVIDERS: PCP Physician Assistant Medical; Visit Provider Physician Assistant Medical | DX: J45.20 Mild intermittent asthma, uncomplicated (principal); G20.A1 Parkinson's disease without dyskinesia, without mention of fluctuations; R07.9 Chest pain, unspecified; E78.00 Pure hypercholesterolemia, unspecified; R49.0 Dysphonia; G47.33 Obstructive sleep apnea (adult) (pediatric); D64.9 Anemia, unspecified; R53.82 Chronic fatigue, unspecified; R29.6 Repeated falls; R06.82 Tachypnea, not elsewhere classified; R06.83 Snoring | CPT/HCPCS: 99212 ==